=== PATIENT | male | born 1970 | race Caucasian/White ===

== ENCOUNTER → 2018-10-10 17:19 | Outpatient (CLI) | payer MEDICAID, SELFPAY ==
[2014-04-23 14:51] VITALS: BMI 35.4
--- NOTE | 2018-10-10 17:25 | RAD_ITS ---
STUDY: X-RAY - RIGHT FOOT CLINICAL: Male, 48 years old. Great toe pain and swelling TECHNIQUE: 2 view(s) of the foot. COMPARISON: None. FINDINGS: Normal talus and tarsal bones. Prominent calcaneal heel spurs. There is an acute minimally displaced osteochondral avulsion fracture of the proximal medial corner of the proximal phalanx of the great toe with soft tissue swelling. Normal visualized subtalar, talonavicular, calcaneocuboid, tarsal and tarsometatarsal articulations. Normal metatarsi. Normal metatarsophalangeal joint of the great toe. Normal tibial and fibular sesamoid bones. Normal interphalangeal joint of the great toe. Normal second through fifth metatarsophalangeal joints. Normal interphalangeal joints and phalanges of the lesser toes. RAD/Foot 2 Views IMPRESSION: Acute osteochondral avulsion fracture of the proximal medial corner of the proximal phalanx of the great toe with soft tissue swelling Prominent calcaneal spurs Electronically Signed: Home Newton MD at 10:13 EDT , Service support ,
== END ==
DX: M79.674 Pain in right toe(s) (principal)
CPT/HCPCS: 73620

== ENCOUNTER → 2018-11-06 15:11 | Outpatient (CLI) | payer MEDICAID, SELFPAY ==
[2014-04-23 14:51] VITALS: BMI 35.4
[2018-11-06 17:15] LABS: Uric Acid 7.4 mg/dL (3.5-7.2)
[2018-11-06 18:12] LABS: Source- Body Fluid SYNOVIAL
[2018-11-06 18:13] LABS: Body Fluid QC Type(s) BF4Q
[2018-11-07 14:06] LABS: Pathologist Review Reviewed
== END ==
PROVIDERS: Referring Provider Podiatrist; Visit Provider Podiatrist
DX: M10.9 Gout, unspecified (principal)
CPT/HCPCS: 36415; 84550; 87070; 87075; 87205; 89060

== ENCOUNTER → 2018-12-03 17:15 | Outpatient (CLI) | payer MEDICAID, SELFPAY ==
--- NOTE | 2018-12-03 17:45 | MRI_ITS ---
STUDY: MRI RIGHT FOREFOOT WITHOUT CONTRAST REASON FOR EXAM: Male, 48 years old. First digit fracture. TECHNIQUE: Standardized fat and water weighted pulse sequences were obtained in all 3 orthogonal planes. 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 There is synovial thickening and small joint effusion. Normal tibial and fibular sesamoids, with normal sesamoids-first metatarsal articulations. Normal interphalangeal joint of the hallux. There is marrow edema of the first proximal phalanx, series 5 images through . There is cystic focus at the base of the first proximal phalanx. There is fragmentation with fracturing on the medial aspect of the base of the first proximal phalanx, series 7 image 19/36. Normal medial and lateral heads of the flexor hallucis brevis tendons. Normal flexor and extensor hallucis longus tendons. Normal second through fifth metatarsophalangeal (MTP) joints. Normal interphalangeal joints of the second through fifth toes. Normal proximal, middle and distal phalanges of the second through fifth toes. Normal first through fourth intermetatarsal spaces. Normal flexor and extensor tendons of the second through fifth toes. Normal visualized metatarsi. Normal intrinsic muscles of the forefoot. There is no demonstrated soft tissue abnormality. MRI/Lower Ext/No Jt/w/o IMPRESSION: Marrow edema of the first proximal phalanx with fragmentation and fracturing at the base of the proximal phalanx. Osteomyelitis could be considered in the clinical setting of infection. Arthritic change at the first MTP joint with effusion and synovial thickening. Electronically Signed: Isidoro Zuniga MD at 18:46 EDT , Service support ,
== END ==
PROVIDERS: Referring Provider Podiatrist; Visit Provider Podiatrist
DX: M19.071 Primary osteoarthritis, right ankle and foot (principal); M10.9 Gout, unspecified; S92.401A Displaced unspecified fracture of right great toe, initial encounter for closed fracture; X58.XXXA Exposure to other specified factors, initial encounter; Y93.9 Activity, unspecified; Y92.9 Unspecified place or not applicable; Y99.9 Unspecified external cause status
CPT/HCPCS: 73718

== ENCOUNTER 2019-04-29 11:02 | Outpatient (RCR) | payer MEDICAID, SELFPAY ==
[2019-04-18 14:05] VITALS: BMI 35.4
== END 2019-05-02 23:59 ==
LOC: DC 11:02
PROVIDERS: Visit Provider Internal Medicine Endocrinology, Diabetes & Metabolism
DX: Z71.3 Dietary counseling and surveillance (principal); E10.65 Type 1 diabetes mellitus with hyperglycemia
CPT/HCPCS: 97802

== ENCOUNTER 2019-05-26 12:04 | Outpatient (RCR) | payer MEDICAID, SELFPAY ==
[2019-04-18 14:05] VITALS: BMI 35.4
== END 2019-05-26 23:59 | disposition home or self-care (01) ==
LOC: DC 12:04
PROVIDERS: Visit Provider Internal Medicine Endocrinology, Diabetes & Metabolism
DX: Z71.3 Dietary counseling and surveillance (principal); E10.65 Type 1 diabetes mellitus with hyperglycemia
CPT/HCPCS: 97803

== ENCOUNTER → 2019-07-22 09:53 | Outpatient (CLI) | payer MEDICAID, SELFPAY ==
[2019-04-18 14:05] VITALS: BMI 35.4
--- NOTE | 2019-07-22 09:58 | RAD_ITS ---
STUDY: X-RAY - RIGHT SHOULDER REASON FOR EXAM: Male, 49 years old. BILAT SHOULDER PAIN. NKI TECHNIQUE: 4 view(s) of the shoulder. COMPARISON: None. FINDINGS: Normal glenohumeral articulation. Normal acromioclavicular joint. Normal acromion. Normal humeral head and visualized proximal humerus. The soft tissue structures are unremarkable. Normal visualized pulmonary apex. RAD/Shoulder min 2 Views IMPRESSION: Normal x-ray examination of the shoulder. Electronically Signed: Edward Tapia, at 14:31 EDT , Service support ,
--- NOTE | 2019-07-22 09:58 | RAD_ITS ---
STUDY: X-RAY - LEFT SHOULDER REASON FOR EXAM: Male, 49 years old. BILAT SHOULDER PAIN. NKI TECHNIQUE: 4 view(s) of the shoulder. COMPARISON: None. FINDINGS: Normal glenohumeral articulation. Normal acromioclavicular joint. Normal acromion. Normal humeral head and visualized proximal humerus. The soft tissue structures are unremarkable. Normal visualized pulmonary apex. RAD/Shoulder min 2 Views IMPRESSION: Normal x-ray examination of the shoulder. Electronically Signed: Edward Tapia, at 14:31 EDT , Service support ,
== END ==
DX: M25.511 Pain in right shoulder (principal); M25.512 Pain in left shoulder
CPT/HCPCS: 73030

== ENCOUNTER 2019-09-05 10:00 | Outpatient (RCR) | payer MEDICAID, SELFPAY ==
[2019-04-18 14:05] VITALS: BMI 35.4
--- NOTE | 2019-08-01 13:23 | HP.PTEVAL_ITS ---
Patient's Visit Information LAUREN SALCIDO is a 49 year old M referred to Physical Therapy by NATASHA Lyman with a diagnosis of B shoulder pain.. Date of Evaluation: 08/01/19 Physical Therapist: Dayton Jordan, GILT, OCS, CSCS - Visit Plan Frequency: 3x /Week Duration: 4 Weeks Plan: 3x/week for 3-4 weeks for. A/PROM B scap and g-h, progress to strength if tolerated, shoulder mobs for pain and movement as tolerated. All B. May use es and MH if needed. - Subjective Got B shoulder pain. Not sure why. X rays were OK. They have hurt for two months insidiously. No problem more than 3 months ago. B anterior shoulder pain symmetrically. Pain is up to 7/10 at times. Worse with reaching out in front of him or into refrigerator for milk. Reaching to hair and behind him and lifting OH all hurt.Feels only slight pain 3/10 at rest. Has been constant for last couple weeks. They don't help anymore. Sleeping is not great but that is normal for him. Not employed, has foot problems and shoulder problems. Activity includes cleaning and dishes whcih make him worse. - Pain B ant shoulder pain. Pain Intensity (Out of 10): 3 Pain Intensity Range: 3, 7 - Objective B L >R. Tender to palpation in g-h anterior>posterior. Poor posture with elevated scap and forward head. Cervical AROM stiff but not painful at 50 ext, 60 rotations., scap AROM limited and sore. Hand and wrist aROM slow but full, elbow movement slow but WNL B. R shoulder aROM flexion:R 70 and L 75, abd same, IR to GT only due to pain, ext roatation to 12 B with pain. PROM elevation 90 B with firm endfeel and pain, ext rotation to 15 L and 12 R limited by pain with firm endfeel. IR at 30 abd has hard time getting hand to belly without pain. Strength 3 in available AROM flexion abd ext rot adn IR, 4- elbow flex adn ext. wrist 4- felxion adn extension. reflexes 2/3 bi and tri. Sensation WNL in UE to gross light touch. 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 Holds arms stiff adn very hard to relax. - drop arm test. Walks and transfers normal and I but hard time getting up from supine today. STIFFNESS AND BILATERAL MAKE WHEN COMBINED WITH NO OBVIOUS ONSET REASON MAKE ME WONDER ABOUT AUTOIMMUNE TYPE CONDTIONS VS ORTHO. - Goals Goal 1:: 0-140 aROM elevation without pain Goal Time Frame: 2-4 Weeks Goal 2:: Patient reach hair and tuck shirt withotu hesitation Goal Time Frame: 2-4 Weeks Goal 3:: Sleep without interruption from shoulders Goal Time Frame: 2-4 Weeks Goal 4:: Pt feel 75% improvement in shoulder condition. Goal Time Frame: 2-4 Weeks - Rehabilitation Potential Physical Therapy Diagnosis: B shoulder pain, ortho vs autoimmune? Rehabilitation Potential: Questionable - Anticipated Interventions Patient/Client Instruction: Educate patient on: Condition, Plan of Care For the Purpose of:: To decrease pain, To decrease swelling/inflammation, To increase ROM, To improve muscle performance and motor function, To increase tolerance to activity/condition/position, To improve ability of physical actions for home/community/work/leisure Therapeutic Exercise to Include: Strength training, Postural training, Flexibilty training, Neuromotor development, Passive ROM, Active ROM For the Purpose of:: To decrease pain, To increase ROM, To improve nutrient delivery to tissue, To increase tolerance to activity/condition/position, To improve ability of physical actions for home/community/work/leisure Manual Therapy Techniques to Include: Mobilization For the Purpose of:: To decrease pain, To increase ROM TENS: Yes Thermo therapy (hot pack): Yes For the Purpose of:: To decrease pain Thank you for the opportunity to evaluate your patient. For Medicare and Medicare HMO plans, please review the plan of care and approve it. It will need to be FAXED BACK to us at [phone] for Medicare purposes. For Medicare only, by signing this I certify the plan of care. Please let me know if there are questions or concerns regarding this plan of care. Physician Si gnature: Date:
--- NOTE | 2019-08-22 10:50 | HP.PTREVAL ---
Linda Mathis, [employer] STUDIES PROFESSOR-C, It has been my pleasure to treat LAUREN SALCIDO over the last 10 visits for B shoulder pain.. Please see the progress note below for an update on the physical therapy plan of care! Subjective: Still got pain intermittently especially on L 6/10 today but normally 3/10. R arm doing better and not near as bad 1-310. B shoulders keep him awake at times as he tosses adn turns. Popping at times. Back to doctor after this final f/u. Objective/Function: 20 L ext rotation adn 35 R external rotation. R 130 elevationa dn L 120 both causing pain. C/s aROM R rotation 40 adn L 30 and ext 28. Improving slowly still very stiff at end range of shoulder elevation adn limited cervical ROM. Strength at 4/5 UE with pain with resistance in ext adn IR and flexion/abd. Appropriate to cotninue with fair prognosis. Plan Plan: 3x/week x 2 weeks, pt to do gym ex at home I with band and wall rom. Please spend clinic time with shoulder gun massage and neck gun massage. and do manual PROM and mobs grade 4 to shoulders and neck to increase neck ROM. MH OK. Goals Goal 1:: 0-140 aROM elevation without pain Goal Time Frame: 2-4 Weeks Goal Progress: Progressing Goal 2:: Patient reach hair and tuck shirt withotu hesitation Goal Time Frame: 2-4 Weeks Goal Progress: Progressing Goal 3:: Sleep without interruption from shoulders Goal Time Frame: 2-4 Weeks Goal Progress: Not Progressing Goal 4:: Pt feel 75% improvement in shoulder condition. Goal Time Frame: 2-4 Weeks Goal Progress: Progressing Anticipated Interventions Patient/Client Instruction: Educate patient on: Condition, Plan of Care For the Purpose of:: To decrease pain, To decrease swelling/inflammation, To increase ROM, To improve muscle performance and motor function, To increase tolerance to activity/condition/position, To improve ability of physical actions for home/community/work/leisure Therapeutic Exercise to Include: Strength training, Postural training, Flexibilty training, Neuromotor development, Passive ROM, Active ROM For the Purpose of:: To decrease pain, To increase ROM, To improve nutrient delivery to tissue, To increase tolerance to activity/condition/position, To improve ability of physical actions for home/community/work/leisure Manual Therapy Techniques to Include: Mobilization For the Purpose of:: To decrease pain, To increase ROM TENS: Yes Thermo therapy (hot pack): Yes For the Purpose of:: To decrease pain Please do not hesitate to contact me at [phone] by phone or if you have questions or concerns regarding this new plan of care! Sincerely, Dayton Jordan, DPT, OCS, CSCS
--- NOTE | 2019-09-05 10:31 | HP.PTDCSUM ---
It has been my pleasure to treat LAUREN SALCIDO referred by Linda Mathis NP-C, with the diagnosis of B shoulder pain. for a total of 13 visit(s). Discharge Date: 09/05/19 Please see the following information for a summary of their discharge status. Subjective: Tension is off and doing better. Pain this week has been present when it pops 5/10 and then it feels better adn eases up. Now 3/10 B and is a pretty nromal day. Sleep is not interrupted B shoulders, never really slept that good. Activities normal. Been doing exercises at home adn can continue on his own. B ant shoulder pain. Pain Intensity (Out of 10): 4 L shoulder Pain Intensity (Out of 10): 3 R shoulder Pain Intensity (Out of 10): 3 % Improvement: 90 Objective/Function: 144 R aROM flexion and 142 L, external rotation B to 55 and IR to L5 with some slight stiffness. strength is 4/5 in B shoulder rotations and flex/abd without c/o pain. elbows are 4+/5 withotu pain. Goal 1:: 0-140 aROM elevation without pain Goal Progress: Goal Met Goal 2:: Patient reach hair and tuck shirt withotu hesitation Goal Progress: Goal Met Goal 3:: Sleep without interruption from shoulders Goal Progress: Goal Met Goal 4:: Pt feel 75% improvement in shoulder condition. Goal Progress: Goal Met Plan: d/c to [facility] If there are questions or concerns regarding this patient's physical therapy, please feel free to call me at [phone]. Thank you for the referral of this patient. Sincerely, Dayton Jordan, DPT, OCS, CSCS
== END 2019-09-05 19:00 | disposition home or self-care (01) ==
LOC: PT 10:00
PROVIDERS: Referring Provider Nurse Practitioner Family; Visit Provider Nurse Practitioner Family
DX: M25.512 Pain in left shoulder (principal)
CPT/HCPCS: 97110; 97140; 97162; 97164

== ENCOUNTER 2020-02-03 17:48 | Emergency (ER) | payer MEDICAID, SELFPAY ==
[2019-12-29 17:08] VITALS: BMI 35.4
[2020-02-03 17:48] VITALS: BP 165/90; PULSE 85; RESP 17; TEMP 36.3; O2SAT 99; BMI 39.6
--- NOTE | 2020-02-03 18:25 | ED.DCSUM_ITS ---
History of Present Illness Chief Complaint: Back Informant: Patient Onset: Days Maximum Severity: Mild Narrative: The patient presents complaining of right paralumbar back pain has had for 3 days, recently seen at a local urgent care clinic setting he had spasm in this area he reports the providers are could not help that he was directed to come to the emergency department. He did not injure his body in any way, he has chronic complaints of pain to the back pain to the pelvis he is referred to providers who is going to see for this process had no access to pain management he came into the ER as above. He is had no fever no cough no coronavirus exposure he is having normal bowel bladder habits normal ability to walk and ambulate, he has normal functional abilities to do all daily activities without difficulty he drove to the clinic and drove to the emergency department that difficulty He points to the right paralumbar back complaining with spasm here He has no history of kidney stones GI ailments, he indicates he has no com plaints no testicular pain or lesions normal bowel and bladder habits Past Medical History - Allergies and Home Meds Allergies/Adverse Reactions: Allergies No Known Allergies Allergy (Verified 02/03/20 17:48) Primary Care Physician: [facility],Maria De Jesus Gee [NON-STAFF] - Past Medical History: - - Back pain pelvic pain includes as above Surgical History: - - 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 Smoking Status: Former smoker - Family History Maternal Family History: Family History (Last Reviewed 01/02/20 @ 08:[address] Kirk Singh MD) Father Diabetes Mother Diabetes Family History: Reports: Diabetes, Heart Disease, Hypertension Paternal Family History: Family History (Last Reviewed 01/02/20 @ 08:[address] Kirk Singh MD) Father Diabetes Mother Diabetes Family History: Reports: No pertinent history Review of Systems General: Denies: Chills, Fever, Sweats Eyes: Denies: Visual changes - bilaterally, Diplopia ENT: Denies: Rhinorrhea, Sore throat Cardiovascular: Denies: Chest pain, Palpitations Respiratory: Denies: Dyspnea, Cough, Dyspnea on exertion Gastrointestinal: Denies: Abdominal pain, Nausea, Vomiting, Diarrhea, Melena, Hematochezia Genitourinary: Reports: Frequency. Denies: Dysuria, Hematuria Musculoskeletal: Reports: Back pain. Denies: Extremity Pain Skin: Denies: Rash, Wounds Neurological: Denies: Headache, Weakness, Numbness Physical Exam Vital Signs/Narrative: Vital Signs Temp Pulse Resp BP Pulse Ox 02/03/20 17:48 97.4 F L 85 17 165/90 H 99 General: Well nourished, Well developed, No Acute Distress Head: Normocephalic, Atraumatic Eyes: Perrl, EOMI ENT: Moist mucous membranes, No rhinorrhea Neck: Supple, Nontender Cardiovascular: Regular rate, Regular rhythm, No murmurs Respiratory: No distress, CTA bilaterally, Chest nontender Abdomen: Soft, Nontender, Nondistended, Normal bowel sounds Back: Normal Inspection, - - Very vague pain to the right paralumbar back he is in no distress he is standing without difficulty the midline back is nontender he can heel raise toe raise knee bend his knees walk around the room with no of abnormalities Extremities: Nontender, No edema Skin: Normal color, No rash Neurological: Alert, Oriented x3, Cranial nerves II-XII grossly intact, Normal Strength, Normal Sensation Psychological: Normal affect, Normal Mood Diagnostic/Tx/Re-eval - Medical Decision Making Given all of the above and his age and his complaints ED screening evaluation labs UA CT Patient's ED screen evaluation and labs UA CT of the abdomen noncontrast pelvis showed nothing acute see above's report discussed the above with him outpatient providers for the management of all the above Home stable Final impression right lumbar back pain ED Disposition - Plan for ED Patient: Diagnosis: Lumbar back pain Instructions: ED Spasm Back No Trauma, ED LUMBAR SPRAIN/STRAIN Prescriptions: Naproxen [Naprosyn] 500 mg PO BID PRN #20 tab Prescription Printed [facility] -
--- NOTE | 2020-02-03 18:28 | CT_ITS ---
STUDY: CT ABDOMEN AND PELVIS WITHOUT CONTRAST REASON FOR EXAM: Male, 49 years old. Back pain and swelling for 2 days. RADIATION DOSAGE (If Supplied By Facility): CTDIvol = ( 22.58 ) mGy, DLP = ( 1258.19 ) mGycm TECHNIQUE: Transaxial images were obtained from the dome of the diaphragm to the symphysis pubis without oral contrast, and without intravenous contrast. Sagittal and coronal images were reconstructed. Individualized dose optimization techniques were used for this CT. COMPARISON: CT of the abdomen and pelvis, 04/23/2014 FINDINGS: The visualized lung bases are unremarkable. The visualized portions of the heart are within normal limits. The liver is enlarged and diffusely fatty infiltrated. There is focal fatty sparing in the gallbladder fossa. Normal gallbladder and extrahepatic biliary system. Normal spleen. Normal pancreas. Normal bilateral adrenal glands. Normal right kidney. Normal left kidney. A tiny lower pole calcification seen on the previous study is no longer appreciated. Normal bilateral ureters. Normal visualized stomach. Normal small intestine. Feces throughout the colon without mass or obstruction. There are scattered diverticuli without inflammatory change. The appendix is visualized and appears normal. Normal abdominal aorta. Normal inferior vena cava. Normal retroperitoneum. Normal urinary bladder. Prostate and seminal vesicles. No pelvic lymphadenopathy. No free air or free fluid is seen within the peritoneal cavity. There is a small umbilical and small right inguinal hernia of omental fat. The abdominal wall is otherwise unremarkable. There are diffuse degenerative changes of the visualized lumbar spine. CT/Abdomen/Pelvis without Cont IMPRESSION: 1. Hepatomegaly with fatty interval radiation. This is unchanged from prior exam. 2. Absence of the tiny left renal calcification seen on the prior study. No other evidence of acute intra-abdominal process or other major interval change. Electronically Signed: Anthony Benjamin DO at 19:14 EST Tel [phone], Service support ,
[2020-02-03] MEDS: Ketorolac 15 MG/ML Vial IV (18:44)
[2020-02-03] MEDS: 0.9% Normal Saline 1,000 ML 250 ML IV (18:45)
[2020-02-03 19:18] LABS: Absolute Lymphocyte Count 1.82 X10^3/uL (0.83-4.51); Absolute Neutrophil Count 4.4 X10^3/uL (2.0-7.7); Basophil# 0.04 X10^3/uL; Basophil% 0.6 % (0-1); Eosinophil# 0.29 X10^3/uL; Hematocrit 41.8 % (40-54); Hemoglobin 13.5 g/dL (13.0-16.5); Lymphocyte # 1.82 X10^3/ul (4.0); Lymphocyte % 25.3 % (19-41); Mean Corp Hgb Conc 32.3 g/dL (32-36); Mean Corpuscular Hgb 26.4 pg (27.0-32.0); Mean Corpuscular Volume 81.8 fL (80-94); Mean Platelet Vol. 10.1 fl (6.2-12.0); Monocyte# 0.62 X10^3/uL; Monocyte% 8.6 % (0-10); NRBC Flagged by Analyzer 0 % (0-5); Neutrophil % 61.2 % (47-70); Platelet Count 201 K/mm3 (150-450); RBC Distribution Width CV 13.3 % (11.6-14.6); RBC Distribution Width SD 39.8 fl (35.1-43.9); Red Blood Count 5.11 M/mm3 (4.6-6.2); White Blood Count 7.2 K/mm3 (4.4-11.0)
[2020-02-03 19:24] LABS: Anion Gap 5 (5-15); BUN 13 mg/dL (7-18); BUN/Creat Ratio 10.8 RATIO (10-20); Calcium,Total 8.4 mg/dL (8.5-10.1); Chloride 106 mmol/L (98-107); EST Glomerular Filtration Rate 68 mL/min (>60); Est Glom Filt Rate - Afr Amer 83 mL/min (>60); Estimated Creatinine Clearance 75.28 ml/min; Glucose 269 mg/dL (74-106); Potassium 3.9 mmol/L (3.5-5.1); Sodium Level 140 mmol/L (136-145)
[2020-02-03 19:54] LABS: Bacteria 0 SEEN /hpf (None Seen); Mucous, Urine 0 SEEN /hpf (<or=2+)
[2020-02-03 20:07] LABS: Color, Urine Yellow (Yellow); Glucose, Dipstick 250 mg/dl (Normal); Ketone-Dipstick 5 mg/dl (Negative); Leukocyte Esterase-Dipstick 25 /ul (Negative); Nitrite-Dipstick Negative (Negative); Occult Blood-Urine 10 /ul (Negative); Protein-Dipstick 15 mg/dl (Negative); Specific Gravity, Urine 1.025 (1.002-1.030); Urine Bilirubin Dipstick Negative (Negative); Urine Clarity Sl. Cloudy (Clear); Urine Urobilinogen Normal (Normal)
[2020-02-03 20:25] LABS: Red Blood Cells-Urine 5-10 SEEN /hpf (0-5); Squamous Epithelial Cells - UA 0-5 SEEN /hpf (0-5); White Blood Cells 5-10 SEEN /hpf (0-5)
[2020-02-03 21:02] VITALS: PULSE 80; RESP 16; O2SAT 98
== END 2020-02-03 21:04 | disposition home or self-care (01) ==
PROVIDERS: Emergency Provider Emergency Medicine; PCP Nurse Practitioner Family
DX: M54.5 Low back pain (principal); Z87.891 Personal history of nicotine dependence
CPT/HCPCS: 74176; 80048; 81001; 85025; 96361; 96374; 99283; J7030; A4216

== ENCOUNTER → 2020-02-17 12:18 | Outpatient (CLI) | payer MEDICAID, SELFPAY ==
[2020-02-03 17:48] VITALS: BMI 39.6
--- NOTE | 2020-02-17 12:26 | US_ITS ---
STUDY: RENAL ULTRASOUND - COMPLETE REASON FOR EXAM: Male, 49 years old. RIGHT FLANK PAIN TECHNIQUE: Ultrasound evaluation of the kidneys was performed with real-time and static pitt-scale imaging. COMPARISON: CT scan from 02/03/2020 FINDINGS: RIGHT KIDNEY: Normal location of the right kidney, which is normal in size. The right kidney measures 13.1 x 6.8 x 4.8 cm. There is a normal cortex of the right kidney. The renal cortex measures 1.0 cm. There is a simple 1.0 cm cyst. There are no right renal calculi. There is no right hydronephrosis. DISTAL RIGHT URETER: There is non-visualization of the distal right ureter. There is no demonstrated right ureterovesical junction calculus. There is a visualized right ureteral jet. LEFT KIDNEY: Normal location of the left kidney, which is normal in size. The left kidney measures 11.8 x 5.2 x 6.1 cm. There is a normal cortex of the left kidney. The renal cortex measures 1.5 cm. There is no left renal mass or cyst. There are no left renal calculi. There is no left hydronephrosis. DISTAL LEFT URETER: There is non-visualization of the distal left ureter. There is no demonstrated left ureterovesical junction calculus. There is a visualized left ureteral jet. AORTA: There is no elongation or tortuosity of the abdominal aorta. I.V.C.: The IVC is patent. BLADDER: The bladder is sonographically normal US/Kidney and Bladder IMPRESSION: No suspicious sonographic findings, simple right renal cyst, no specific follow-up needed. Electronically Signed: Home Newton MD at 17:50 EST , Service support ,
== END ==
DX: M54.5 Low back pain (principal)
CPT/HCPCS: 76770

== ENCOUNTER → 2020-04-05 13:08 | Outpatient (CLI) | payer MEDICAID, SELFPAY ==
--- NOTE | 2020-04-05 15:30 | PFTCOMP ---
COMPLETE PULMONARY FUNCTION TEST INTERPRETATION Brief HPI: Patient is a 50 year old female, currently under the care of [facility], who presents to [facility] for complete pulmonary function tests secondary to diagnosis of dyspnea. Respiratory therapist reports good effort and reproducible results. Patient was complaining of chest pain on forced exhalation Interpretation: Forced expiration spirometry shows no large airways obstructive ventilatory defect with an FEV1 of 81% predicted. There is no significant bronchodilator response by strict ATS criteria. Spirograms are of good quality and plateau normally. The respiratory flow volume loop shows a normal pattern. Lung volumes by body plethysmography show a mildly decreased total lung capacity at 4.84 L, 83% predicted. All other lung volumes are within normal limits. Diffusion capacity by carbon monoxide is normal at 71% predicted. The airway resistance is normal. No previous pulmonary function tests were available for review. Impression: Mild restrictive ventilatory defect. Clinical suspicion for voluntary restriction secondary to chest pain, but clinical correlation would be advised.
== END ==
DX: R06.09 Other forms of dyspnea (principal)
CPT/HCPCS: 94060; 94726; 94729

== ENCOUNTER → 2020-04-07 | Outpatient (CLI) | payer MEDICAID, SELFPAY ==
[2020-04-07 13:17] LABS: Protein, Urine (Random) 36.8 mg/dL (<11.9); Protein:Creat Ratio 179 mg/g CRE (0-200)
== END | disposition home or self-care (01) ==
LOC: LABSPEC 11:36
PROVIDERS: Visit Provider Internal Medicine Nephrology
DX: N18.2 Chronic kidney disease, stage 2 (mild) (principal)
CPT/HCPCS: 82570; 84156

== ENCOUNTER → 2020-04-13 12:39 | Outpatient (CLI) | payer MEDICAID, SELFPAY ==
--- NOTE | 2020-04-13 12:46 | VDLE_ITS ---
Reason For Study: swelling RIGHT LEFT GSV is normal. GSV is normal. CFV is compressible, spontaneous, phasic, CFV is compressible, spontaneous, phasic, competent and demonstrates normal competent, and demonstrates normal augmentation. augmentation. FV is compressible, spontaneous, phasic, FV is compressible, spontaneous, phasic, competent and demonstrates normal competent and demonstrates normal augmentation. augmentation. POP V is compressible, spontaneous, phasic, POP V is compressible, spontaneous, phasic, competent and demonstrates normal competent and demonstrates normal augmentation. augmentation. T/P Trunk is compressible. T/P Trunk is compressible. PTV is compressible. PTV is compressible. RT PerV is compressible. LT PerV is compressible. Procedure This is a venous duplex using B-mode, color flow and spectral Doppler. Exam performed in department. The exam was diagnostic. A preliminary report was called and/or faxed to Dr. Grove. Interpretation Summary Deep veins of the lower extremities are bilaterally patent and compressible segmentally. There is no evidence of deep vein thrombosis on either side. Valvular competence appears intact within the proximal deep venous systems bilaterally. The great saphenous veins appear bilaterally patent and compressible segmentally. Ordering Physician: Mega Grove Performed By: Raudel Thomas RVT
[2020-04-13 13:34] LABS: Erythrocyte Sedimentation Rate 17 mm/hr (0-20)
[2020-04-13 13:36] LABS: Absolute Neutrophil Count 4.6 X10^3/uL (2.0-7.7); Basophil# 0.06 X10^3/uL; Basophil% 0.8 % (0-1); Eosinophil# 0.25 X10^3/uL; Eosinophils% 3.5 % (0-5); Hemoglobin 15.4 g/dL (13.0-16.5); Lymphocyte % 23.8 % (19-41); Mean Corp Hgb Conc 32.8 g/dL (32-36); Mean Corpuscular Hgb 26.3 pg (27.0-32.0); Mean Corpuscular Volume 80.2 fL (80-94); Mean Platelet Vol. 10.4 fl (6.2-12.0); Monocyte# 0.55 X10^3/uL; Monocyte% 7.7 % (0-10); NRBC Flagged by Analyzer 0 % (0-5); Neutrophil # 4.55 X10^3/uL (2.7-7.7); Neutrophil % 63.9 % (47-70); Platelet Count 208 K/mm3 (150-450); RBC Distribution Width CV 13.3 % (11.6-14.6); RBC Distribution Width SD 38.5 fl (35.1-43.9); Red Blood Count 5.86 M/mm3 (4.6-6.2); White Blood Count 7.1 K/mm3 (4.4-11.0)
[2020-04-13 13:58] LABS: Anion Gap 5 (5-15); BUN 14 mg/dL (7-18); BUN/Creat Ratio 12.3 RATIO (10-20); CRP 3.66 mg/L (0.0-3.0); Calcium,Total 8.3 mg/dL (8.5-10.1); Chloride 103 mmol/L (98-107); Creatinine, Serum 1.14 mg/dL (0.70-1.30); EST Glomerular Filtration Rate 73 mL/min (>60); Est Glom Filt Rate - Afr Amer 88 mL/min (>60); Glucose 171 mg/dL (74-106); Potassium 3.8 mmol/L (3.5-5.1); Rheumatoid Factor < 10.0 IU/mL (<15); Sodium Level 140 mmol/L (136-145); Uric Acid 6.2 mg/dL (3.5-7.2)
[2020-04-13 13:59] LABS: Vitamin D,25 Hydroxy 9.1 ng/mL
[2020-04-14 14:40] LABS: ANTINUCLEAR ANTIBODIES DIRECT Negative (Negative)
== END ==
PROVIDERS: Referring Provider Podiatrist; Visit Provider Podiatrist
DX: R60.0 Localized edema (principal)
CPT/HCPCS: 36415; 80048; 82306; 83036; 84550; 85025; 85652; 86038; 86140; 86431; 93970

== ENCOUNTER → 2020-06-08 11:07 | Outpatient (CLI) | payer MEDICAID, SELFPAY ==
[2020-05-03 13:15] VITALS: BMI 42.3
[2020-06-08 11:54] LABS: Hematocrit 40.6 % (40-54); Hemoglobin 13.5 g/dL (13.0-16.5); Mean Corp Hgb Conc 33.3 g/dL (32-36); Mean Corpuscular Hgb 27.3 pg (27.0-32.0); Mean Corpuscular Volume 82.2 fL (80-94); Mean Platelet Vol. 10.4 fl (6.2-12.0); Platelet Count 192 K/mm3 (150-450); RBC Distribution Width CV 13.6 % (11.6-14.6); RBC Distribution Width SD 40.2 fl (35.1-43.9); Red Blood Count 4.94 M/mm3 (4.6-6.2); White Blood Count 6.3 K/mm3 (4.4-11.0)
[2020-06-08 12:03] LABS: Protein, Urine (Random) 34.3 mg/dL (<11.9); Protein:Creat Ratio 197 mg/g CRE (0-200)
[2020-06-08 12:33] LABS: Vitamin D,25 Hydroxy 30.3 ng/mL
[2020-06-08 12:34] LABS: AST(SGOT) 21 U/L (15-37); Alanine Aminotransfer ALT/SGPT 35 U/L (16-61); Albumin, Serum 3.8 g/dL (3.2-5.0); BUN 13 mg/dL (7-18); BUN/Creat Ratio 13.2 RATIO (10-20); Calcium,Total 8.3 mg/dL (8.5-10.1); Chloride 103 mmol/L (98-107); Creatinine, Serum 0.98 mg/dL (0.70-1.30); EST Glomerular Filtration Rate 86 mL/min (>60); Est Glom Filt Rate - Afr Amer 104 mL/min (>60); Glucose 163 mg/dL (74-106); Phosphorus 2.7 mg/dL (2.5-4.9); Potassium 3.9 mmol/L (3.5-5.1); Sodium Level 138 mmol/L (136-145)
[2020-06-08 12:44] LABS: Hemoglobin A1c 8.5 % (3.8-5.6)
== END ==
PROVIDERS: Referring Provider Internal Medicine Nephrology; Visit Provider Internal Medicine Nephrology
DX: E10.21 Type 1 diabetes mellitus with diabetic nephropathy (principal); N18.2 Chronic kidney disease, stage 2 (mild); E55.9 Vitamin D deficiency, unspecified; M19.90 Unspecified osteoarthritis, unspecified site
CPT/HCPCS: 36415; 80069; 82306; 82570; 83036; 84156; 84450; 84460; 85027

== ENCOUNTER → 2020-09-06 11:47 | Outpatient (CLI) | payer MEDICAID, SELFPAY ==
[2020-09-06 11:19] VITALS: BMI 42.7
[2020-09-06 15:45] LABS: Cholesterol 183 mg/dL (200); High Density Lipoprotein 31 mg/dL; Triglycerides 286 mg/dL; Very Low Density Lipoprotein 57 mg/dL (5-40)
== END ==
PROVIDERS: Nurse Practitioner Family; Visit Provider Internal Medicine Endocrinology, Diabetes & Metabolism
DX: E78.2 Mixed hyperlipidemia (principal)
CPT/HCPCS: 36415; 80061

== ENCOUNTER 2020-09-22 13:45 | Outpatient (RCR) | payer MEDICAID, SELFPAY ==
[2020-09-01 13:15] VITALS: BP 167/90; PULSE 80; RESP 18; TEMP 36.6; BMI 42.7
[2020-09-01 15:20] LABS: Hemoglobin A1c 9.7 % (3.8-5.6)
--- NOTE | 2020-09-01 17:14 | PCM.WC.HP ---
History of Present Illness Date of Service: 09/01/20 Chief Complaint: Right great toe ulcer History of Wound: This 50-year-old male with uncontrolled diabetes and hypertension was seen for right great toe ulcer with an onset of 3 weeks ago. [facility]. He denies trauma. He does report loss of sensation consistent with neuropathy. He reports his last A1c level was between 8 and 10. He has been changing the dressing with Betadine. His claudication. He was provided with an offloading surgical shoe at the foot and ankle Center but presents today wearing a sneaker. He denies odor, redness, fever, chill, nausea, vomiting. He is with his son today. Progress of Wound: New evaluation, stable [facility] Medical History (Updated 09/01/20 @ 17:[address] Tracey Trinh DPM) Benign essential hypertension, age 0-18 Charcot foot due to diabetes mellitus Mixed hyperlipidemia Polyneuropathy due to type 1 diabetes mellitus Type 1 diabetes mellitus Home Medications aspirin 81 mg PO DAILY@0800 #30 tab.chew 04/25/14 [Rx Last Taken Unknown] famotidine 20 mg PO BID #60 tab 04/25/14 [Rx Last Taken Unknown] lisinopril 10 mg tablet 10 mg PO DAILY #1 tab 04/18/19 [Rx Last Taken Unknown] rosuvastatin 10 mg tablet 10 mg PO DAILY #1 tab 04/18/19 [Rx Last Taken Unknown] flash glucose scanning reader #1 ea 11/27/19 [Rx Last Taken Unknown] flash glucose sensor #2 ea 11/27/19 [Rx Last Taken Unknown] pen needle, diabetic 32 gauge x 32 #100 ea 12/29/19 [Rx Last Taken Unknown] blood sugar diagnostic #100 ea 01/19/20 [Rx Last Taken Unknown] naproxen 500 mg PO BID PRN #20 tab 02/03/20 [Rx Last Taken Unknown] insulin regular hum U-500 conc 60 unit SC TID #12 ml 05/03/20 [Rx Last Taken Unknown] lancets 33 gauge #100 ea 05/03/20 [Rx Last Taken Unknown] Allergy/AdvReac Type Severity Reaction Status Date / Time No Known Allergies Allergy Verified 05/03/20 13:16 Family History Father Diabetes Mother Diabetes Social History (Updated 05/03/20 @ 13:[address] Kirk Singh MD) alcohol intake: current alcohol intake frequency: holidays/special occasions only Vital Signs Vital Signs Vital Signs: 09/01/20 13:15 Temperature 97.8 F Temperature Source Temporal Pulse Rate 80 Respiratory Rate 18 Blood Pressure 167/90 H Blood Pressure Mean 115 Blood Pressure Source Monitor Blood Pressure Position Sitting Blood Pressure Location Left Arm Weight Weight: 120.202 kg Body Mass Index (BMI) 42.7 Physical Exam Const alert and oriented x3 General Appearance: cooperative HEENT normocephalic Extremity Extremity Narrative: No calf tenderness Diminished pulses 2/4 bilateral DP and 1/4 bilateral PT Muscle wasting noted Decreased limited first metatarsophalangeal joint range of motion General Extremity: edema and no tenderness to palpation of joints or extremities; Negative for cyanosis Skin Skin Narrative: no purulence, no streaking, no odor, no infection. There is hyperpigmentation to bilateral lower extremities. His skin is atrophic with limited hair to the foot and leg. The ulcer base is pale and granular with peripheral callus. There is no necrosis, maceration, or deep tissue exposure General Skin Exam: Negative for erythema Neuro Neuro Narrative: lack of normal epicritic sensation via light touch is consistent with neuropathy status Psych cooperative and affect normal Debridement Note Debridement Note Post-Debridement Measurements and Additional Note: Post-Debridement Measurements/Treatment - Nurse 1 - General Ulcer Assessment Start: 09/01/20 13:15 Freq: Status: Active Protocol: WC.LOWEXT Activity Type Activity Date Activity User E-Sign Co-Sign Detail Recorded Client Recorded Date Recorded By Document 09/01/20 13:15 [place] Desktop 09/01/20 13:25 [place] 09/01/20 13:15 - Today's Visit Information Type of service Initial Visit Arrival Mode Ambulatory Transfer Assistance None Patient Identification Verified (Name & Yes ) Patient Requires Transmission-Based No Precautions Safety Precautions NA Finger Stick Blood Sugar(mg/dl) (if 145 indicated): Blood Sugar Stated by Patient Height and Weight Height 5 ft 6 in Weight 120.202 kg Weight in Pounds 265.0 lbs Weight Measurement Method Standing Scale Body Mass Index (BMI) 42.7 BMI Classification Obese BSA - Leslye 2.25 Vital Signs Temperature (97.8 F-99.1 F) 97.8 F Temperature Source Temporal Pulse Rate (60-100) 80 Pulse Location Monitor Respiratory Rate (12-18) 18 Respiratory rate source Observation Blood Pressure (90/60-120/80) 167/90 H Blood Pressure Mean 115 Source Monitor Position Sitting Blood Pressure Location Left Arm History Since Last Visit- (Skip if this is Patient's initial visit) Have you changed medications since your No last visit? Any new allergies or adverse reactions No Had a fall/change in ADL's that may No increase risk of falls Signs or symptoms of abuse and/or No neglect since last visit Have you been in the hospital since your No last visit? Has dressing in place as prescribed Yes Has compression in place as prescribed N/A Has offloadiing in place as prescribed N/A Experienced any changes in pain level or No management Left Footwear Regular Shoe Right Footwear Regular Shoe Pain Scale: 0-10 Numeric Is Patient Pain Free? Yes WC - Nurse 1 - General Ulcer Measurement Start: 09/01/20 13:15 Freq: Status: Active Protocol: Activity Type Activity Date Activity User E-Sign Co-Sign Detail Recorded Client Recorded Date Recorded By Document 09/01/20 13:15 MS Desktop 09/01/20 13:25 MS 09/01/20 13:15 Wound Center Nurse 1 #1 RIGHT HALLUX PLANTAR -Combined with other wound No -Current Size (cm) - Length 1.2 -Current Size (cm) - Width 2 -Current Size (cm) - Depth 0.2 -Total Square Cm 2.4 -Exudate Amt Small -Exudate Type Serosanguineous -Wound Margin Distinct, Outline Attached -Granulation Amt Small (1-33%) -Slough/Fibrin Yes -Necrosis Amt Medium (34-66%) -Necrotic Tissue Type Adherent Slough -Texture (Quynh-wound Skin Appearance) No Abnormality -Moisture (Quynh-wound Skin Appearance) No Abnormality -Color (Quynh-wound Skin Appearance) No Abnormality -Ulcer Cleansing Wound Cleanser -Foul Odor after Cleansing No -Anesthetic Used 4% Lidocaine Solution Right Calf (cm) 44.5 Right Ankle (cm) 27 Left Calf (cm) 44.5 Left Ankle (cm) 25.7 WC - Nurse 2 - General Ulcer CM Notes Start: 09/01/20 13:15 Freq: Status: Active Protocol: Activity Type Activity Date Activity User E-Sign Co-Sign Detail Recorded Client Recorded Date Recorded By Document 09/01/20 13:45 [id number] 09/01/20 13:51 09/01/20 13:45 Wound Center Nurse 2 #1 RIGHT HALLUX PLANTAR -Time 13:48 -Correct Patient Yes -Correct Side, Site, Position Yes -Correct Procedure Yes -Procedure Performed Yes -Type of Procedure Debridement -Clinical Debridement Subcutaneous -Tissue Removed Subcutaneous -Post Debridement (cm) - Length 1 -Post Debridement (cm) - Width 2 -Post Debridement (cm) - Depth 0.2 -Total Square (Post) (cm) 2 -Area of Debridement (cm) - Length 1 -Area of Debridement (cm) - Width 2 -Total Square (Area) (cm) 2 -Tunneling No -Undermining/Tunneling No -Circular Undermining No -Wound/Ulcer Outcome Not Healed -Ulcer Cleansing Rinsed/ Irrigated with Saline -Foul Odor after Cleansing No -Bioengineered Tissue No -Bleeding Controlled with Pressure -Offloading Yes -Type of Offloading Surgical Shoe -Treatment Response Procedure Tolerated Well -Debridement - Subq, 1st 20sq cm Yes Pain Scale: 0-10 Numeric Is Patient Pain Free? Yes - Nurse 3 - General Ulcer D/C NN Start: 09/01/20 13:15 Freq: Status: Active Protocol: Activity Type Activity Date Activity User E-Sign Co-Sign Detail Recorded Client Recorded Date Recorded By Document 09/01/20 14:14 Desktop 09/01/20 14:14 09/01/20 14:14 Wound Care Nurse 3 #1 RIGHT HALLUX PLANTAR -Ulcer Cleansing Wound Cleanser -Primary Dressing Applied Aquacel AG 4x4 -Primary Dressing Covered/Secured with Dry Gauze,Dry Gauze & Roll Gauze,Secured with Tape -Aquacel AG 4x4 1 Treatment Response Procedure Tolerated Well Pain Scale: 0-10 Numeric Is Patient Pain Free? Yes - Visit Discharge Discharge Condition Stable Ambulatory Status Ambulatory Transportation Private Auto Medication Reconcilliation completed & No provided to patient/care provider Clinical Summary of Care Provided Yes Wound debrided: plantar right hallux Wound Grade/Stage: 1 Type of Debridement: Excisional debridement Anesthesia Used: 4% Lidocaine Solution Depth: in the subcutaneous layer Percentage of wound debrided: 100 Instrument Used: #15 blade Tissue Removed: fibrous, devitalized subcutaneous, biofilm, slough Severity: Fat Layer Exposed Amount of bleeding with debridement: Mild Bleeding Controlled with: Pressure Patient tolerated procedure: Patient tolerated procedure well Lab / Micro Data Labs: Laboratory Results - last 24 hr 09/01/20 14:25 Hemoglobin A1c 9.7 H Assessment/Plan Assessment/Plan (1) Type 2 diabetes mellitus with diabetic polyneuropathy: CODE(S): E11.42 - Type 2 diabetes mellitus with diabetic polyneuropathy (2) Chronic ulcer of great toe of right foot with fat layer exposed: CODE(S): L97.512 - Non-pressure chronic ulcer of other part of right foot with fat layer exposed (3) Type 2 diabetes mellitus with right diabetic foot ulcer: CODE(S): E11.621 - Type 2 diabetes mellitus with foot ulcer; L97.519 - Non-pressure chronic ulcer of other part of right foot with unspecified severity (4) Malnutrition: CODE(S): E46 - Unspecified protein-calorie malnutrition (5) Other specified peripheral vascular diseases: CODE(S): I73.89 - Other specified peripheral vascular diseases (6) Venous insufficiency (chronic) (peripheral): CODE(S): I87.2 - Venous insufficiency (chronic) (peripheral) (7) Localized edema: CODE(S): R60.0 - Localized edema PLAN: I reviewed and discussed his case today. Debridement was performed today as noted in the clinical panel to all of the ulcer sites. The following work up and care recommendations were made: Dressing: Aquacel Ag Wash: Soap and water Tissue growth optimization: His ulcer is chronic and has been open for over 3 weeks. I recommend application of advanced wound healing product, epi fix, the indication, benefits, anticipated application was reviewed. This is donated placental tissue with over 300 growth factors. Prior authorization will be initiated. This is medically necessary for limb salvage. Offload: To resume offloading surgical shoe use with offloading Plastizote liners. He will bring this to clinic next week for potential additional modifications Vascular: I recommend noninvasive arterial studies including RYAN, segmental pressures and systolic toe pressures. Edema: It is okay to wear Tubigrip and elevate. Venous Doppler with reflux evaluation was also ordered. He has hyperpigmentation and I suspect venous insufficiency may be contributing to this. Infection: He was reassured no local signs infection are noted. To monitor for development. Pain: Not present due to neuropathy Host factors: His hemoglobin A1c is elevated and this may delay healing. He is following up with Dr. Singh, plan checker next week in which she will further discuss additional medication, diet, and activity modifications to optimize healing and diabetic control. Nutrition: I recommend improvement in nutrition. He was seen by [facility] mission support specialist in the past and reports that he was not able to pursue the recommendations. He also realizes his nutrition plan is not allowing appropriate glucose management. I recommend implementing at least some of the recommendations. Labs: CBC, CMP, updated hemoglobin A1c was ordered Imaging: He obtained a foot x-ray at the foot and ankle Center and I will review at that location I answered all the patient's questions. To return to the wound healing center in 1 week or call sooner if the patient has any questions or concerns. 20 minutes was spent on this encounter. This included face to face and non face to face care including preparing for the visit, reviewing the history, performing the exam, counseling and providing education to the patient, family, or caregiver, ordering medications/test/ procedures if indicated as documented, communicating with other healthcare providers, documenting information in the medical record, interpreting / sharing this information when indicated as documented, and care coordination.
[2020-09-08 13:35] VITALS: BP 145/83; TEMP 38.3; BMI 42.7
--- NOTE | 2020-09-08 16:20 | PCM.WC.PN ---
History of Present Illness Date of Service: 09/08/20 Chief Complaint: Right great toe ulcer History of Wound: This 50-year-old male with uncontrolled diabetes and hypertension was seen for right great toe ulcer. He does report loss of sensation consistent with neuropathy. He has been changing the dressing as advised. His claudication. He was provided with an offloading surgical shoe. He denies odor, redness, fever, chill, nausea, vomiting. He is with his son today. He did not complete his recommended diagnostic data. We reviewed his hemoglobin A1c results today and he reports he has seen a renal social worker a couple times and does not know if they can provide additional help for him. Progress of Wound: Stable Objective Data Objective Data Vital Signs: Vital Signs Temp Pulse Resp BP 101 F H 80 18 145/83 H 09/08/20 13:35 09/01/20 13:15 09/01/20 13:15 09/08/20 13:35 Weight: 120.202 kg Body Mass Index (BMI) 42.7 Physical Exam Const alert and oriented x3 General Appearance: cooperative HEENT normocephalic Extremity Extremity Narrative: No calf tenderness Diminished pulses 2/4 bilateral DP and 1/4 bilateral PT Muscle wasting noted Decreased limited first metatarsophalangeal joint range of motion General Extremity: edema and no tenderness to palpation of joints or extremities; Negative for cyanosis Skin Skin Narrative: no purulence, no streaking, no odor, no infection. There is hyperpigmentation to bilateral lower extremities. His skin is atrophic with limited hair to the foot and leg. The ulcer base is pale and granular with peripheral callus. There is no necrosis, maceration, or deep tissue exposure General Skin Exam: Negative for erythema Neuro Neuro Narrative: lack of normal epicritic sensation via light touch is consistent with neuropathy status Psych cooperative and affect normal Debridement Note Debridement Note Post-Debridement Measurements and Additional Note: Post-Debridement Measurements/Treatment WC - Nurse 1 - General Ulcer Assessment Start: 09/01/20 13:15 Freq: Status: Active Protocol: KIMMY Activity Type Activity Date Activity User E-Sign Co-Sign Detail Recorded Client Recorded Date Recorded By Document 09/01/20 13:15 MS Desktop 09/01/20 13:25 MS Document 09/08/20 13:35 KR Desktop 09/08/20 13:41 KR 09/01/20 09/08/20 13:15 13:35 - Today's Visit Information Type of service Initial Visit Follow-up Visit (Physician/GIN CLERK ) Arrival Mode Ambulatory Ambulatory,Cane Transfer Assistance None Patient Identification Verified (Name & Yes Yes ) Patient Requires Transmission-Based No Precautions Safety Precautions NA Finger Stick Blood Sugar(mg/dl) (if 145 indicated): Blood Sugar Stated by Patient Height and Weight Height 5 ft 6 in Weight 120.202 kg Weight in Pounds 265.0 lbs Weight Measurement Method Standing Scale Body Mass Index (BMI) 42.7 42.7 BMI Classification Obese Obese BSA - Leslye 2.25 Vital Signs Temperature (97.8 F-99.1 F) 97.8 F 101 F H Temperature Source Temporal Temporal Pulse Rate (60-100) 80 Pulse Location Monitor Monitor Respiratory Rate (12-18) 18 Respiratory rate source Observation Blood Pressure (90/60-120/80) 167/90 H 145/83 H Blood Pressure Mean (mm Hg) 115 103 Source Monitor Monitor Position Sitting Semi-Fowlers Blood Pressure Location Left Arm Left Arm History Since Last Visit- (Skip if this is Patient's initial visit) Have you changed medications since your No No last visit? Any new allergies or adverse reactions No No Had a fall/change in ADL's that may No No increase risk of falls Signs or symptoms of abuse and/or No No neglect since last visit Have you been in the hospital since your No No last visit? Has dressing in place as prescribed Yes Yes Has compression in place as prescribed N/A N/A Has offloadiing in place as prescribed N/A Yes Experienced any changes in pain level or No No management Left Footwear Regular Shoe Right Footwear Regular Shoe Pain Scale: 0-10 Numeric Is Patient Pain Free? Yes Yes - Nurse 1 - General Ulcer Measurement Start: 09/01/20 13:15 Freq: Status: Active Protocol: Activity Type Activity Date Activity User E-Sign Co-Sign Detail Recorded Client Recorded Date Recorded By Document 09/01/20 13:15 MS Desktop 09/01/20 13:25 MS Document 09/08/20 13:35 KR Desktop 09/08/20 13:41 KR 09/01/20 09/08/20 13:15 13:35 Wound Center Nurse 1 #1 RIGHT HALLUX PLANTAR -Combined with other wound No -Current Size (cm) - Length 1.2 0.9 -Current Size (cm) - Width 2 1.5 -Current Size (cm) - Depth 0.2 0.5 -Total Square Cm 2.4 1.35 -Exudate Amt Small Small -Exudate Type Serosanguineous Serosanguineous -Wound Margin Distinct, Distinct, Outline Outline Attached Attached -Granulation Amt Small (1-33%) Small (1-33%) -Granulation Quality Red -Slough/Fibrin Yes -Necrosis Amt Medium (34-66%) Small (1-33%) -Necrotic Tissue Type Adherent Slough Adherent Slough -Texture (Quynh-wound Skin Appearance) No Abnormality Assessed, Scarring -Moisture (Quynh-wound Skin Appearance) No Abnormality No Abnormality, Assessed -Color (Quynh-wound Skin Appearance) No Abnormality No Abnormality, Assessed -Temperature (Quynh-wound Skin No Abnormality Appearance) (Pt Warm) -Tenderness on Palpation (Quynh-wound No Skin Appearance) -Ulcer Cleansing Wound Cleanser Rinsed/ Irrigated with Saline -Foul Odor after Cleansing No No -Anesthetic Used 4% Lidocaine 5% Lidocaine Solution Gel Right Calf (cm) 44.5 Right Ankle (cm) 27 Left Calf (cm) 44.5 Left Ankle (cm) 25.7 WC - Nurse 2 - General Ulcer CM Notes Start: 09/01/20 13:15 Freq: Status: Active Protocol: Activity Type Activity Date Activity User E-Sign Co-Sign Detail Recorded Client Recorded Date Recorded By Document 09/01/20 13:45 [id number] 09/01/20 13:51 Document 09/08/20 14:04 Laptop 09/08/20 14:10 09/01/20 09/08/20 13:45 14:04 Wound Center Nurse 2 #1 RIGHT HALLUX PLANTAR -Time 13:48 14:04 -Correct Patient Yes Yes -Correct Side, Site, Position Yes Yes -Correct Procedure Yes Yes -Procedure Performed Yes Yes -Type of Procedure Debridement Debridement -Clinical Debridement Subcutaneous Subcutaneous -Tissue Removed Subcutaneous Subcutaneous -Post Debridement (cm) - Length 1 1.0 -Post Debridement (cm) - Width 2 1.5 -Post Debridement (cm) - Depth 0.2 0.2 -Total Square (Post) (cm) 2 1.50 -Area of Debridement (cm) - Length 1 1.0 -Area of Debridement (cm) - Width 2 1.5 -Total Square (Area) (cm) 2 1.50 -Tunneling No No -Undermining/Tunneling No No -Circular Undermining No No -Wound/Ulcer Outcome Not Healed Not Healed -Ulcer Cleansing Rinsed/ Rinsed/ Irrigated with Irrigated with Saline Saline -Foul Odor after Cleansing No No -Bioengineered Tissue No Yes -Type of Bioengineered Tissue Epifix 18mm Disc -Expiration Date 05/31/25 -Product Lot Number [id number] -Percent Used 100 -Lot number of Saline Used [id number] -Bleeding Controlled with Pressure Pressure -Offloading Yes Yes -Type of Offloading Surgical Shoe Camwalker -Treatment Response Procedure Procedure Tolerated Well Tolerated Well -Debridement - Subq, 1st 20sq cm Yes No -Apply Skin Sub - 1st 25 sq cm - Feet 1 -Epifix 18mm Disc 3 Pain Scale: 0-10 Numeric Is Patient Pain Free? Yes Yes - Nurse 3 - General Ulcer D/C NN Start: 09/01/20 13:15 Freq: Status: Active Protocol: Activity Type Activity Date Activity User E-Sign Co-Sign Detail Recorded Client Recorded Date Recorded By Document 09/01/20 14:14 Desktop 09/01/20 14:14 09/01/20 14:14 Wound Care Nurse 3 #1 RIGHT HALLUX PLANTAR -Ulcer Cleansing Wound Cleanser -Primary Dressing Applied Aquacel AG 4x4 -Primary Dressing Covered/Secured with Dry Gauze,Dry Gauze & Roll Gauze,Secured with Tape -Aquacel AG 4x4 1 Treatment Response Procedure Tolerated Well Pain Scale: 0-10 Numeric Is Patient Pain Free? Yes - Visit Discharge Discharge Condition Stable Ambulatory Status Ambulatory Transportation Private Auto Medication Reconcilliation completed & No provided to patient/care provider Clinical Summary of Care Provided Yes Wound debrided: plantar medial right hallux Wound Grade/Stage: 1 Type of Debridement: Excisional debridement Anesthesia Used: 4% Lidocaine Solution Depth: in the subcutaneous layer Percentage of wound debrided: 100 Instrument Used: #15 blade Tissue Removed: fibrous, devitalized subcutaneous, biofilm, slough Severity: Fat Layer Exposed Amount of bleeding with debridement: Mild Bleeding Controlled with: Pressure Patient tolerated procedure: Patient tolerated procedure well Assessment/Plan Assessment/Plan (1) Type 2 diabetes mellitus with diabetic polyneuropathy: CODE(S): E11.42 - Type 2 diabetes mellitus with diabetic polyneuropathy QUALIFIERS: Diabetes mellitus mcc insulin use: with mcc use Qualified Code(s): E11.42 - Type 2 diabetes mellitus with diabetic polyneuropathy; Z79.4 - terminal operations manager (current) use of insulin (2) Chronic ulcer of great toe of right foot with fat layer exposed: CODE(S): L97.512 - Non-pressure chronic ulcer of other part of right foot with fat layer exposed (3) Type 2 diabetes mellitus with right diabetic foot ulcer: CODE(S): E11.621 - Type 2 diabetes mellitus with foot ulcer; L97.519 - Non-pressure chronic ulcer of other part of right foot with unspecified severity (4) Malnutrition: CODE(S): E46 - Unspecified protein-calorie malnutrition (5) Other specified peripheral vascular diseases: CODE(S): I73.89 - Other specified peripheral vascular diseases (6) Venous insufficiency (chronic) (peripheral): CODE(S): I87.2 - Venous insufficiency (chronic) (peripheral) (7) Localized edema: CODE(S): R60.0 - Localized edema PLAN: I reviewed and discussed his case today. Debridement was performed today as noted in the clinical panel to all of the ulcer sites. The following work up and care recommendations were made: Dressing: Aquacel Ag Wash: Soap and water Tissue growth optimization: His ulcer is chronic and has been open for over 4 weeks. I recommend application of advanced wound healing product, epi fix, the indication, benefits, anticipated application was reviewed. This is donated placental tissue with over 300 growth factors. This is medically necessary for limb salvage. Prior authorization was obtained and verbal consent was obtained. This was applied according to standard protocol and was further secured in place with a wound veil and Steri-Strips. He tolerated this well. 100% of the product was utilized. He was advised to keep this clean, dry, and intact until next week. Offload: To continue offloading surgical shoe use with offloading Plastizote liners. Vascular: I recommend noninvasive arterial studies including RYAN, segmental pressures and systolic toe pressures. Edema: It is okay to wear Tubigrip and elevate. Venous Doppler with reflux evaluation was also ordered. He has hyperpigmentation and I suspect venous insufficiency may be contributing to this. Infection: He was reassured no local signs infection are noted. To monitor for development. Pain: Not present due to neuropathy Host factors: His hemoglobin A1c is elevated and this may delay healing. His updated A1c was 9.7%. He is following up with Dr. Singh, drum operator next week in which she will further discuss additional medication, diet, and activity modifications to optimize healing and diabetic control. Nutrition: I recommend improvement in nutrition. He was seen by [facility] renal social worker in the past and reports that he was not able to pursue the recommendations. He also realizes his nutrition plan is not allowing appropriate glucose management. I recommend implementing at least some of the recommendations. He refuses additional referral today. Labs: CBC, CMP. He did not proceed forward with his diagnostic data testing as advised including the labs and vascular studies. He will work on completing these. Imaging: He obtained a foot x-ray at the [facility] and this was reviewed without osseous destruction, soft tissue emphysema, acute injuries. I answered all the patient's questions. To return to the wound healing center in 1 week or call sooner if the patient has any questions or concerns. Note: [employer] speech recognition occupational health physiotherapist software was used to create portions of this document. Sound-alike and misspelled words, as well as other occupational health physiotherapist errors may be contained in the documentation. The medical decision making level is low. There is noted low risk of morbidity after considering this treatment plan and diagnostic data. The problems addressed require a low medical decision making level which includes two or more minor problems, a stable chronic illness, or an acute uncomplicated illness or injury.
--- NOTE | 2020-09-14 11:00 | ART_ITS ---
Reason For Study: PVD Procedure A bilateral lower extremity continuous wave Doppler with analog waveform analysis,segmental pressures,and ankle brachial indexes without exercise. Left Segmental Pressures Left brachial= 154mmHg. Left posterior tibial artery = 194mmHg. Left dorsalis pedis artery = 182mmHg. Left digit = 149 mmHg. The left dorsalis pedis waveforms are triphasic. The left posterior tibial artery waveforms are triphasic. Right Segmental Pressures Right brachial= 161mmHg. Right posterior tibial artery = 211mmHg. Right dorsalis pedis artery = 187mmHg. The right dorsalis pedis waveforms are triphasic. The right posterior tibial artery waveforms are triphasic. Indices The right ankle brachial index by the dorsalis pedis is 1.16. The right ankle brachial index by the posterior tibial artery is 1.31. The left ankle brachial index by the dorsalis pedis is 1.13. The left ankle brachial index by the posterior tibial artery is 1.20. The left digital-brachial index is 0.93. VL/Lower Ext Art Exam w/o Exercis Interpretation Summary Triphasic Doppler waveforms are noted at ankle level bilaterally. Pulse-volume recordings appear satisfactory bilaterally. Resting ankle-brachial indices are normal bilaterally . The right digital- brachial index was not determined due to the presence of bandages. The left dig ital-brachial index is normal. There is no evidence of significant arterial occlusive disease in the lower ext remities bilaterally. Arterial flow at digital level on the right was not assessed due to the presenc e of bandages. Ordering Physician: Tracey Trinh Referring Physician: Maria De Jesus [facility] Performed By: Shalonda Carrera RVT and Student
[2020-09-15 13:38] VITALS: BP 174/96; PULSE 89; RESP 16; TEMP 36.4; BMI 42.7
--- NOTE | 2020-09-15 16:28 | PN.PCM_ITS ---
History of Present Illness Date of Service: 09/15/20 Chief Complaint: Right great toe ulcer History of Wound: This 50-year-old male with uncontrolled diabetes and hypertension was seen for right great toe ulcer. He does report loss of sensation consistent with neuropathy. He has been changing the dressing as advised. He denies claudication. He was provided with an offloading surgical shoe and wears it at times. He denies odor, redness, fever, chill, nausea, vomiting. He did not complete his recommended diagnostic data. He has a new ulcer to the front of his ankle and relates he has been extremely active with his offloading shoe device and he thinks this is rubbing. Progress of Wound: Stable Objective Data Objective Data Vital Signs: Vital Signs Temp Pulse Resp BP 97.6 F L 89 16 174/96 H 09/15/20 13:38 09/15/20 13:38 09/15/20 13:38 09/15/20 13:38 Oxygen Delivery Method Room Air Weight: 120.202 kg Body Mass Index (BMI) 42.7 Radiography Diagnostic Testing: Radiology Impression Extremity Arterial Study 09/14/20 11:00 Interpretation Summary Triphasic Doppler waveforms are noted at ankle level bilaterally. Pulse-volume recordings appear satisfactory bilaterally. Resting ankle-brachial indices are normal bilaterally. The right digital- brachial index was not determined due to the presence of bandages. The left digital-brachial index is normal. There is no evidence of significant arterial occlusive disease in the lower extremities bilaterally. Arterial flow at digital level on the right was not assessed due to the presence of bandages. Ordering Physician: Tracey Trinh [facility]erring Physician[facility] Performed By: Shalonda Carrera RVT and Student Physical Exam Const alert and oriented x3 General Appearance: cooperative HEENT normocephalic Extremity Extremity Narrative: No calf tenderness Diminished pulses 2/4 bilateral DP and 1/4 bilateral PT Muscle wasting noted Decreased limited first metatarsophalangeal joint range of motion General Extremity: edema and no tenderness to palpation of joints or extremities; Negative for cyanosis Skin Skin Narrative: no purulence, no streaking, no odor, no infection. There is hyperpigmentation to bilateral lower extremities. His skin is atrophic with limited hair to the foot and leg. The ulcer base is pale and granular with peripheral callus. There is no necrosis, maceration, or deep tissue exposure. There is a new skin discontinuity to his anterior ankle/lower leg without odor or redness. This is fibrous and granular base no exposed tendon or necrosis or eschar General Skin Exam: Negative for erythema Neuro Neuro Narrative: lack of normal epicritic sensation via light touch is consistent with neuropathy status Psych cooperative and affect normal Debridement Note Debridement Note Post-Debridement Measurements and Additional Note: Post-Debridement Measurements/Treatment - Nurse 1 - General Ulcer Assessment Start: 09/01/20 13:15 Freq: Status: Active Protocol: KIMMY Activity Type Activity Date Activity User E-Sign Co-Sign Detail Recorded Client Recorded Date Recorded By Document 09/01/20 13:15 MS Desktop 09/01/20 13:25 MS Document 09/08/20 13:35 KR Desktop 09/08/20 13:41 KR Document 09/15/20 13:38 [facility] [id number] 09/15/20 13:43 [facility] 09/01/20 09/08/20 09/15/20 13:15 13:35 13:38 - Today's Visit Information Type of service Initial Visit Follow-up Visit Follow-up Visit (Physician/CLINICAL PSYCHOLOGY PROFESSOR (Physician/CLINICAL PSYCHOLOGY PROFESSOR ) ) Arrival Mode Ambulatory Ambulatory,Cane Ambulatory Transfer Assistance None None Patient Identification Verified (Name & Yes Yes Yes ) Patient Requires Transmission-Based No No Precautions Safety Precautions NA Finger Stick Blood Sugar(mg/dl) (if 145 96 indicated): Blood Sugar Stated by Stated by Patient Patient Height and Weight Height 5 ft 6 in Weight 120.202 kg Weight in Pounds 265.0 lbs Weight Measurement Method Standing Scale Body Mass Index (BMI) 42.7 42.7 42.7 BMI Classification Obese Obese Obese BSA - Leslye 2.25 Vital Signs Temperature (97.8 F-99.1 F) 97.8 F 101 F H 97.6 F L Temperature Source Temporal Temporal Temporal Pulse Rate (60-100) 80 89 Pulse Location Monitor Monitor Monitor Respiratory Rate (12-18) 18 16 Respiratory rate source Observation Observation Oxygen Delivery Method Room Air Blood Pressure (90/60-120/80) 167/90 H 145/83 H 174/96 H Blood Pressure Mean (mm Hg) 115 103 122 Source Monitor Monitor Monitor Position Sitting Semi-Fowlers Sitting Blood Pressure Location Left Arm Left Arm Right Arm History Since Last Visit- (Skip if this is Patient's initial visit) Have you changed medications since your No No No last visit? Any new allergies or adverse reactions No No No Had a fall/change in ADL's that may No No No increase risk of falls Signs or symptoms of abuse and/or No No No neglect since last visit Have you been in the hospital since your No No No last visit? Has dressing in place as prescribed Yes Yes Yes Has compression in place as prescribed N/A N/A N/A Has offloadiing in place as prescribed N/A Yes Yes Experienced any changes in pain level or No No No management Left Footwear Regular Shoe Regular Shoe Right Footwear Regular Shoe Removable Cast Walker/Walking Boot Pain Scale: 0-10 Numeric Is Patient Pain Free? Yes Yes Yes WC - Nurse 1 - General Ulcer Measurement Start: 09/01/20 13:15 Freq: Status: Active Protocol: Activity Type Activity Date Activity User E-Sign Co-Sign Detail Recorded Client Recorded Date Recorded By Document 09/01/20 13:15 MS Desktop 09/01/20 13:25 MS Document 09/08/20 13:35 KR Desktop 09/08/20 13:41 KR Document 09/15/20 13:38 [facility] [id number] 09/15/20 13:43 [facility] 09/01/20 09/08/20 09/15/20 13:15 13:35 13:38 Wound Center Nurse 1 #2- R ANTERIOR ANKLE -Combined with other wound No -Current Size (cm) - Length 0.7 -Current Size (cm) - Width 0.5 -Current Size (cm) - Depth 0.1 -Total Square Cm 0.35 -Date of Last Picture (Recall this 09/15/20 field) -Photo Taken Yes -Epithelialization None Present -Tunneling No -Undermining/Tunneling No -Circular Undermining No -Exudate Amt Small -Exudate Type Serosanguineous -Wound Margin Flat & Intact -Granulation Amt Medium (34-66%) -Granulation Quality Red -Slough/Fibrin Yes -Necrosis Amt Medium (34-66%) -Necrotic Tissue Type Adherent Slough -Texture (Quynh-wound Skin Appearance) Assessed -Moisture (Quynh-wound Skin Appearance) Assessed -Color (Quynh-wound Skin Appearance) Assessed, Erythema -Temperature (Quynh-wound Skin No Abnormality Appearance) (Pt Warm) -Tenderness on Palpation (Quynh-wound No Skin Appearance) -Ulcer Cleansing SOAPY WATER -Anesthetic Used 4% Lidocaine Solution #1 RIGHT HALLUX PLANTAR -Combined with other wound No No -Current Size (cm) - Length 1.2 0.9 0.3 -Current Size (cm) - Width 2 1.5 0.4 -Current Size (cm) - Depth 0.2 0.5 0.2 -Total Square Cm 2.4 1.35 0.12 -Photo Taken No -Epithelialization None Present -Tunneling No -Undermining/Tunneling No -Circular Undermining No -Exudate Amt Small Small Small -Exudate Type Serosanguineous Serosanguineous Serosanguineous -Wound Margin Distinct, Distinct, Distinct, Outline Outline Outline Attached Attached Attached -Granulation Amt Small (1-33%) Small (1-33%) None Present (0 %) -Granulation Quality Red -Slough/Fibrin Yes Yes -Necrosis Amt Medium (34-66%) Small (1-33%) Large (67-100%) -Necrotic Tissue Type Adherent Slough Adherent Slough Adherent Slough -Texture (Quynh-wound Skin Appearance) No Abnormality Assessed, Assessed,Callus Scarring ,Scarring -Moisture (Quynh-wound Skin Appearance) No Abnormality No Abnormality, Assessed,Dry/ Assessed Scaly -Color (Quynh-wound Skin Appearance) No Abnormality No Abnormality, Assessed Assessed -Temperature (Quynh-wound Skin No Abnormality No Abnormality Appearance) (Pt Warm) (Pt Warm) -Tenderness on Palpation (Quynh-wound No Skin Appearance) -Ulcer Cleansing Wound Cleanser Rinsed/ soapy wter Irrigated with Saline -Foul Odor after Cleansing No No No -Anesthetic Used 4% Lidocaine 5% Lidocaine 4% Lidocaine Solution Gel Solution Right Calf (cm) 44.5 Right Ankle (cm) 27 Left Calf (cm) 44.5 Left Ankle (cm) 25.7 - Nurse 2 - General Ulcer CM Notes Start: 09/01/20 13:15 Freq: Status: Active Protocol: Activity Type Activity Date Activity User E-Sign Co-Sign Detail Recorded Client Recorded Date Recorded By Document 09/01/20 13:45 [id number] 09/01/20 13:51 Document 09/08/20 14:04 Laptop 09/08/20 14:10 09/01/20 09/08/20 13:45 14:04 Wound Center Nurse 2 #1 RIGHT HALLUX PLANTAR -Time 13:48 14:04 -Correct Patient Yes Yes -Correct Side, Site, Position Yes Yes -Correct Procedure Yes Yes -Procedure Performed Yes Yes -Type of Procedure Debridement Debridement -Clinical Debridement Subcutaneous Subcutaneous -Tissue Removed Subcutaneous Subcutaneous -Post Debridement (cm) - Length 1 1.0 -Post Debridement (cm) - Width 2 1.5 -Post Debridement (cm) - Depth 0.2 0.2 -Total Square (Post) (cm) 2 1.50 -Area of Debridement (cm) - Length 1 1.0 -Area of Debridement (cm) - Width 2 1.5 -Total Square (Area) (cm) 2 1.50 -Tunneling No No -Undermining/Tunneling No No -Circular Undermining No No -Wound/Ulcer Outcome Not Healed Not Healed -Ulcer Cleansing Rinsed/ Rinsed/ Irrigated with Irrigated with Saline Saline -Foul Odor after Cleansing No No -Bioengineered Tissue No Yes -Type of Bioengineered Tissue Epifix 18mm Disc -Expiration Date 05/31/25 -Product Lot Number [id number] -Percent Used 100 -Lot number of Saline Used [id number] -Bleeding Controlled with Pressure Pressure -Offloading Yes Yes -Type of Offloading Surgical Shoe Camwalker -Treatment Response Procedure Procedure Tolerated Well Tolerated Well -Debridement - Subq, 1st 20sq cm Yes No -Apply Skin Sub - 1st 25 sq cm - Feet 1 -Epifix 18mm Disc 3 Pain Scale: 0-10 Numeric Is Patient Pain Free? Yes Yes SANDRA - Nurse 3 - General Ulcer D/C NN Start: 09/01/20 13:15 Freq: Status: Active Protocol: Activity Type Activity Date Activity User E-Sign Co-Sign Detail Recorded Client Recorded Date Recorded By Document 09/01/20 14:14 RB Desktop 09/01/20 14:14 RB Document 09/15/20 14:29 [id number] 09/15/20 14:29 RUBI 09/01/20 09/15/20 14:14 14:29 Wound Care Nurse 3 #2- R ANTERIOR ANKLE -Primary Dressing Covered/Secured with Dry Gauze, Secured with Tape #1 RIGHT HALLUX PLANTAR -Ulcer Cleansing Wound Cleanser -Primary Dressing Applied Aquacel AG 4x4 -Primary Dressing Covered/Secured with Dry Gauze,Dry Dry Gauze, Gauze & Roll Secured with Gauze,Secured Tape with Tape -Aquacel AG 4x4 1 Treatment Response Procedure Tolerated Well Pain Scale: 0-10 Numeric Is Patient Pain Free? Yes Yes WC - Visit Discharge Discharge Condition Stable Stable Ambulatory Status Ambulatory Ambulatory Transportation Private Auto Private Auto Medication Reconcilliation completed & No provided to patient/care provider Clinical Summary of Care Provided Yes Wound debrided: right plantar hallux and right anterior ankle/lower leg Wound Grade/Stage: 1 Type of Debridement: Excisional debridement Anesthesia Used: 4% Lidocaine Solution Depth: in the subcutaneous layer Percentage of wound debrided: 100 Instrument Used: #15 blade Tissue Removed: fibrous, devitalized subcutaneous, biofilm, slough Severity: Fat Layer Exposed Amount of bleeding with debridement: Mild Bleeding Controlled with: Pressure Patient tolerated procedure: Patient tolerated procedure well Assessment/Plan Assessment/Plan (1) Type 2 diabetes mellitus with diabetic polyneuropathy: CODE(S): E11.42 - Type 2 diabetes mellitus with diabetic polyneuropathy QUALIFIERS: Diabetes mellitus detention insulin use: with superintendent terminal use Qualified Code(s): E11.42 - Type 2 diabetes mellitus with diabetic polyneuropathy; Z79.4 - ad terminal makeup operator (current) use of insulin (2) Chronic ulcer of great toe of right foot with fat layer exposed: CODE(S): L97.512 - Non-pressure chronic ulcer of other part of right foot with fat layer exposed (3) Type 2 diabetes mellitus with right diabetic foot ulcer: CODE(S): E11.621 - Type 2 diabetes mellitus with foot ulcer; L97.519 - Non-pressure chronic ulcer of other part of right foot with unspecified severity (4) Malnutrition: CODE(S): E46 - Unspecified protein-calorie malnutrition (5) Other specified peripheral vascular diseases: CODE(S): I73.89 - Other specified peripheral vascular diseases (6) Venous insufficiency (chronic) (peripheral): CODE(S): I87.2 - Venous insufficiency (chronic) (peripheral) (7) Localized edema: CODE(S): R60.0 - Localized edema (8) Non-pressure chronic ulcer of unspecified part of right lower leg with fat layer exposed: CODE(S): L97.912 - Non-pressure chronic ulcer of unspecified part of right lower leg with fat layer exposed PLAN: I reviewed and discussed his case today. Debridement was performed today as noted in the clinical panel to all of the ulcer sites. New ulcer site noted. The following work up and care recommendations were made: Dressing: Aquacel Ag Wash: Soap and water Tissue growth optimization: His ulcer is chronic and has been open for over 4 weeks. I recommend application of advanced wound healing product, epi fix, the indication, benefits, anticipated application was reviewed. This is donated placental tissue with over 300 growth factors. This is medically necessary for limb salvage. Prior authorization was obtained and verbal consent was obtained. This was applied according to standard protocol and was further secured in place with a wound veil and Steri-Strips. He tolerated this well (hallux location). 100% of the product was utilized. He was advised to keep this clean, dry, and intact until next week. Offload: To continue offloading surgical shoe use with offloading Plastizote liners. He was advised to avoid excessive walking or strap placement directly over his anterior ankle ulcer site. An aperture pad was applied to take pressure off of this ulcer site. Vascular: I recommend noninvasive arterial studies including RYAN, segmental pressures and systolic toe pressures. These were reviewed without abnormalities. He has good waveforms and normal ABIs. Edema: It is okay to wear Tubigrip and elevate. Venous Doppler with reflux evaluation was also ordered. There is not any venous insufficiency noted after reviewing these results. Infection: He was reassured no local signs infection are noted. To monitor for development. Pain: Not present due to neuropathy Host factors: His hemoglobin A1c is elevated and this may delay healing. His updated A1c was 9.7%. He is following up with Dr. Singh, sorting cows worker next week in which she will further discuss additional medication, diet, and activity modifications to optimize healing and diabetic control. Nutrition: I recommend improvement in nutrition. He was seen by [facility] gastroenterology teacher in the past and reports that he was not able to pursue the recommendations. He also realizes his nutrition plan is not allowing appropriate glucose management. I recommend implementing at least some of the recommendations. He refuses additional referral today. Labs: CBC, CMP. He did not proceed forward with his diagnostic data testing as advised including the labs and vascular studies. He will work on completing these. Imaging: He obtained a foot x-ray at the [facility] and this was reviewed without osseous destruction, soft tissue emphysema, acute injuries. I answered all the patient's questions. To return to the wound healing center in 1 week or call sooner if the patient has any questions or concerns. Note: [employer] speech recognition shallot packer software was used to create portions of this document. Sound-alike and misspelled words, as well as other shallot packer errors may be contained in the documentation. The medical decision making level is low. There is noted low risk of morbidity after considering this treatment plan and diagnostic data. The problems addressed require a low medical decision making level which includes two or more minor problems, a stable chronic illness, or an acute uncomplicated illness or injury. The medical decision making level is limited based on data including the review of prior external notes, review of a prior test, or ordering a test.
[2020-09-22 13:50] VITALS: BP 145/73; PULSE 72; TEMP 36.2; BMI 42.7
--- NOTE | 2020-09-22 14:24 | PN.PCM_ITS ---
History of Present Illness Date of Service: 09/22/20 Chief Complaint: Right great toe ulcer and right ankle ulcer History of Wound: This 50-year-old male with uncontrolled diabetes and hypertension was seen for right great toe ulcer. He does report loss of sensation consistent with neuropathy. He has been changing the dressing as advised. He denies claudication. He was provided with an offloading surgical shoe and wears it more consistently. He denies odor, redness, fever, chill, nausea, vomiting. He has been using an antibacterial pad to offload the ulcer to his ankle site. He denies drainage. Progress of Wound: Both sites are healing Objective Data Objective Data Vital Signs: Vital Signs Temp Pulse Resp BP 97.1 F L 72 16 145/73 H 09/22/20 13:50 09/22/20 13:50 09/15/20 13:38 09/22/20 13:50 Oxygen Delivery Method Room Air Weight: 120.202 kg Body Mass Index (BMI) 42.7 Physical Exam Const alert and oriented x3 General Appearance: cooperative HEENT normocephalic Extremity Extremity Narrative: No calf tenderness Diminished pulses 2/4 bilateral DP and 1/4 bilateral PT Muscle wasting noted Decreased limited first metatarsophalangeal joint range of motion General Extremity: edema and no tenderness to palpation of joints or extremities; Negative for cyanosis Skin Skin Narrative: no purulence, no streaking, no odor, no infection. There is hyperpigmentation to bilateral lower extremities. Full epithelialization is noted to the hallux and anterior ankle. His skin is atrophic and there is no drainage or necrosis or ecchymosis General Skin Exam: Negative for erythema Neuro Neuro Narrative: lack of normal epicritic sensation via light touch is consistent with neuropathy status Psych cooperative and affect normal Debridement Note Debridement Note Post-Debridement Measurements and Additional Note: Post-Debridement Measurements/Treatment WC - Nurse 1 - General Ulcer Assessment Start: 09/01/20 13:15 Freq: Status: Active Protocol: KIMMY Activity Type Activity Date Activity User E-Sign Co-Sign Detail Recorded Client Recorded Date Recorded By Document 09/01/20 13:15 ML Desktop 09/01/20 13:25 ML Document 09/08/20 13:35 KR Desktop 09/08/20 13:41 KR Document 09/15/20 13:38 BM [id number] 09/15/20 13:43 BMF Document 09/22/20 13:50 KR Desktop 09/22/20 13:59 KR 09/01/20 09/08/20 09/15/20 13:15 13:35 13:38 - Today's Visit Information Type of service Initial Visit Follow-up Visit Follow-up Visit (Physician/ELEMENTARY ASSISTANT PRINCIPAL (Physician/ELEMENTARY ASSISTANT PRINCIPAL ) ) Arrival Mode Ambulatory Ambulatory,Cane Ambulatory Transfer Assistance None None Patient Identification Verified (Name & Yes Yes Yes ) Patient Requires Transmission-Based No No Precautions Safety Precautions NA Finger Stick Blood Sugar(mg/dl) (if 145 96 indicated): Blood Sugar Stated by Stated by Patient Patient Height and Weight Height 5 ft 6 in Weight 120.202 kg Weight in Pounds 265.0 lbs Weight Measurement Method Standing Scale Body Mass Index (BMI) 42.7 42.7 42.7 BMI Classification Obese Obese Obese BSA - Leslye 2.25 Vital Signs Temperature (97.8 F-99.1 F) 97.8 F 101 F H 97.6 F L Temperature Source Temporal Temporal Temporal Pulse Rate (60-100) 80 89 Pulse Location Monitor Monitor Monitor Respiratory Rate (12-18) 18 16 Respiratory rate source Observation Observation Oxygen Delivery Method Room Air Blood Pressure (90/60-120/80) 167/90 H 145/83 H 174/96 H Blood Pressure Mean (mm Hg) 115 103 122 Source Monitor Monitor Monitor Position Sitting Semi-Fowlers Sitting Blood Pressure Location Left Arm Left Arm Right Arm History Since Last Visit- (Skip if this is Patient's initial visit) Have you changed medications since your No No No last visit? Any new allergies or adverse reactions No No No Had a fall/change in ADL's that may No No No increase risk of falls Signs or symptoms of abuse and/or No No No neglect since last visit Have you been in the hospital since your No No No last visit? Has dressing in place as prescribed Yes Yes Yes Has compression in place as prescribed N/A N/A N/A Has offloadiing in place as prescribed N/A Yes Yes Experienced any changes in pain level or No No No management Left Footwear Regular Shoe Regular Shoe Right Footwear Regular Shoe Removable Cast Walker/Walking Boot Pain Scale: 0-10 Numeric Is Patient Pain Free? Yes Yes Yes 09/22/20 13:50 WC - Today's Visit Information Type of service Follow-up Visit (Physician/ELEMENTARY ASSISTANT PRINCIPAL ) Arrival Mode Ambulatory,Cane Transfer Assistance Patient Identification Verified (Name & ) Patient Requires Transmission-Based Precautions Safety Precautions Finger Stick Blood Sugar(mg/dl) (if indicated): Blood Sugar Height and Weight Height Weight Weight in Pounds Weight Measurement Method Body Mass Index (BMI) 42.7 BMI Classification Obese [facility] - Leslye Vital Signs Temperature (97.8 F-99.1 F) 97.1 F L Temperature Source Temporal Pulse Rate (60-100) 72 Pulse Location Monitor Respiratory Rate (12-18) Respiratory rate source Oxygen Delivery Method Blood Pressure (90/60-120/80) 145/73 H Blood Pressure Mean (mm Hg) 97 Source Monitor Position Semi-Fowlers Blood Pressure Location Left Arm History Since Last Visit- (Skip if this is Patient's initial visit) Have you changed medications since your No last visit? Any new allergies or adverse reactions No Had a fall/change in ADL's that may No increase risk of falls Signs or symptoms of abuse and/or No neglect since last visit Have you been in the hospital since your No last visit? Has dressing in place as prescribed Yes Has compression in place as prescribed Yes Has offloadiing in place as prescribed N/A Experienced any changes in pain level or No management Left Footwear Right Footwear Pain Scale: 0-10 Numeric Is Patient Pain Free? Yes WC - Nurse 1 - General Ulcer Measurement Start: 09/01/20 13:15 Freq: Status: Active Protocol: Activity Type Activity Date Activity User E-Sign Co-Sign Detail Recorded Client Recorded Date Recorded By Document 09/01/20 13:15 ML Desktop 09/01/20 13:25 ML Document 09/08/20 13:35 KR Desktop 09/08/20 13:41 KR Document 09/15/20 13:38 [facility] [id number] 09/15/20 13:43 [facility] Document 09/22/20 13:50 KR Desktop 09/22/20 13:59 KR 09/01/20 09/08/20 09/15/20 13:15 13:35 13:38 Wound Center Nurse 1 #2- R ANTERIOR ANKLE -Combined with other wound No -Current Size (cm) - Length 0.7 -Current Size (cm) - Width 0.5 -Current Size (cm) - Depth 0.1 -Total Square Cm 0.35 -Date of Last Picture (Recall this 09/15/20 field) -Photo Taken Yes -Epithelialization None Present -Tunneling No -Undermining/Tunneling No -Circular Undermining No -Exudate Amt Small -Exudate Type Serosanguineous -Wound Margin Flat & Intact -Granulation Amt Medium (34-66%) -Granulation Quality Red -Slough/Fibrin Yes -Necrosis Amt Medium (34-66%) -Necrotic Tissue Type Adherent Slough -Texture (Quynh-wound Skin Appearance) Assessed -Moisture (Quynh-wound Skin Appearance) Assessed -Color (Quynh-wound Skin Appearance) Assessed, Erythema -Temperature (Quynh-wound Skin No Abnormality Appearance) (Pt Warm) -Tenderness on Palpation (Quynh-wound No Skin Appearance) -Ulcer Cleansing SOAPY WATER -Foul Odor after Cleansing -Anesthetic Used 4% Lidocaine Solution #1 RIGHT HALLUX PLANTAR -Combined with other wound No No -Current Size (cm) - Length 1.2 0.9 0.3 -Current Size (cm) - Width 2 1.5 0.4 -Current Size (cm) - Depth 0.2 0.5 0.2 -Total Square Cm 2.4 1.35 0.12 -Photo Taken No -Epithelialization None Present -Tunneling No -Undermining/Tunneling No -Circular Undermining No -Exudate Amt Small Small Small -Exudate Type Serosanguineous Serosanguineous Serosanguineous -Wound Margin Distinct, Distinct, Distinct, Outline Outline Outline Attached Attached Attached -Granulation Amt Small (1-33%) Small (1-33%) None Present (0 %) -Granulation Quality Red -Slough/Fibrin Yes Yes -Necrosis Amt Medium (34-66%) Small (1-33%) Large (67-100%) -Necrotic Tissue Type Adherent Slough Adherent Slough Adherent Slough -Texture (Quynh-wound Skin Appearance) No Abnormality Assessed, Assessed,Callus Scarring ,Scarring -Moisture (Quynh-wound Skin Appearance) No Abnormality No Abnormality, Assessed,Dry/ Assessed Scaly -Color (Quynh-wound Skin Appearance) No Abnormality No Abnormality, Assessed Assessed -Temperature (Quynh-wound Skin No Abnormality No Abnormality Appearance) (Pt Warm) (Pt Warm) -Tenderness on Palpation (Quynh-wound No Skin Appearance) -Ulcer Cleansing Wound Cleanser Rinsed/ soapy wter Irrigated with Saline -Foul Odor after Cleansing No No No -Anesthetic Used 4% Lidocaine 5% Lidocaine 4% Lidocaine Solution Gel Solution Right Calf (cm) 44.5 Right Ankle (cm) 27 Left Calf (cm) 44.5 Left Ankle (cm) 25.7 09/22/20 13:50 Wound Center Nurse 1 #2- R ANTERIOR ANKLE -Combined with other wound -Current Size (cm) - Length 0.2 -Current Size (cm) - Width 0.2 -Current Size (cm) - Depth 0.1 -Total Square Cm 0.04 -Date of Last Picture (Recall this field) -Photo Taken -Epithelialization -Tunneling -Undermining/Tunneling -Circular Undermining -Exudate Amt None Present -Exudate Type -Wound Margin Distinct, Outline Attached -Granulation Amt None Present (0 %) -Granulation Quality -Slough/Fibrin -Necrosis Amt None Present (0 %) -Necrotic Tissue Type -Texture (Quynh-wound Skin Appearance) Assessed, Scarring -Moisture (Quynh-wound Skin Appearance) No Abnormality, Assessed -Color (Quynh-wound Skin Appearance) No Abnormality, Assessed -Temperature (Quynh-wound Skin No Abnormality Appearance) (Pt Warm) -Tenderness on Palpation (Quynh-wound No Skin Appearance) -Ulcer Cleansing Rinsed/ Irrigated with Saline -Foul Odor after Cleansing No -Anesthetic Used 5% Lidocaine Gel #1 RIGHT HALLUX PLANTAR -Combined with other wound -Current Size (cm) - Length 0.1 -Current Size (cm) - Width 0.1 -Current Size (cm) - Depth 0.1 -Total Square Cm 0.01 -Photo Taken -Epithelialization -Tunneling -Undermining/Tunneling -Circular Undermining -Exudate Amt None Present -Exudate Type -Wound Margin Distinct, Outline Attached -Granulation Amt Small (1-33%) -Granulation Quality Red -Slough/Fibrin -Necrosis Amt None Present (0 %) -Necrotic Tissue Type -Texture (Quynh-wound Skin Appearance) Assessed, Scarring -Moisture (Quynh-wound Skin Appearance) No Abnormality, Assessed -Color (Quynh-wound Skin Appearance) No Abnormality, Assessed -Temperature (Quynh-wound Skin No Abnormality Appearance) (Pt Warm) -Tenderness on Palpation (Quynh-wound No Skin Appearance) -Ulcer Cleansing Rinsed/ Irrigated with Saline -Foul Odor after Cleansing No -Anesthetic Used 5% Lidocaine Gel Right Calf (cm) Right Ankle (cm) Left Calf (cm) Left Ankle (cm) WC - Nurse 2 - General Ulcer CM Notes Start: 09/01/20 13:15 Freq: Status: Active Protocol: Activity Type Activity Date Activity User E-Sign Co-Sign Detail Recorded Client Recorded Date Recorded By Document 09/01/20 13:45 [id number] 09/01/20 13:51 Document 09/08/20 14:04 Laptop 09/08/20 14:10 Document 09/15/20 17:39 PL [id number] 09/15/20 17:41 PL Edit Result 09/15/20 17:39 PL (1) [id number] 09/17/20 07:28 PL Document 09/22/20 14:19 JF [id number] 09/22/20 14:23 JF (1) #2- R ANTERIOR ANKLE - Debridement - Subq, 1st 20sq cm Yes => No #1 RIGHT HALLUX PLANTAR - Bioengineered Tissue No => Yes - Type of Bioengineered Tissue => Epifix 18mm Disc - Expiration Date => 05/31/25 - Product Lot Number => [id number] - Percent Used => 100 - Apply Skin Sub - 1st 25 sq cm - Feet => 1 - Epifix 18mm Disc => 3 09/01/20 09/08/20 09/15/20 13:45 14:04 17:39 Wound Center Nurse 2 #2- R ANTERIOR ANKLE -Time 14:15 -Correct Patient Yes -Correct Side, Site, Position Yes -Correct Procedure Yes -Procedure Performed Yes -Type of Procedure Debridement -Clinical Debridement Subcutaneous -Tissue Removed Subcutaneous -Post Debridement (cm) - Length 0.7 -Post Debridement (cm) - Width 0.5 -Post Debridement (cm) - Depth 0.1 -Total Square (Post) (cm) 0.35 -Area of Debridement (cm) - Length 0.7 -Area of Debridement (cm) - Width 0.5 -Total Square (Area) (cm) 0.35 -Tunneling No -Undermining/Tunneling No -Circular Undermining No -Wound/Ulcer Outcome Not Healed -Ulcer Cleansing Rinsed/ Irrigated with Saline -Foul Odor after Cleansing No -Bioengineered Tissue No -Bleeding Controlled with Pressure -Treatment Response Procedure Tolerated Well -Debridement - Subq, 1st 20sq cm No #1 RIGHT HALLUX PLANTAR -Time 13:48 14:04 14:15 -Correct Patient Yes Yes Yes -Correct Side, Site, Position Yes Yes Yes -Correct Procedure Yes Yes Yes -Procedure Performed Yes Yes Yes -Type of Procedure Debridement Debridement Debridement -Clinical Debridement Subcutaneous Subcutaneous Subcutaneous -Tissue Removed Subcutaneous Subcutaneous Subcutaneous -Post Debridement (cm) - Length 1 1.0 0.3 -Post Debridement (cm) - Width 2 1.5 0.4 -Post Debridement (cm) - Depth 0.2 0.2 0.2 -Total Square (Post) (cm) 2 1.50 0.12 -Area of Debridement (cm) - Length 1 1.0 0.3 -Area of Debridement (cm) - Width 2 1.5 0.4 -Total Square (Area) (cm) 2 1.50 0.12 -Tunneling No No No -Undermining/Tunneling No No No -Circular Undermining No No No -Wound/Ulcer Outcome Not Healed Not Healed Not Healed -Ulcer Cleansing Rinsed/ Rinsed/ Rinsed/ Irrigated with Irrigated with Irrigated with Saline Saline Saline -Foul Odor after Cleansing No No No -Bioengineered Tissue No Yes Yes -Type of Bioengineered Tissue Epifix 18mm Epifix 18mm Disc Disc -Expiration Date 05/31/25 05/31/25 -Product Lot Number [id number] -Percent Used 100 100 -Lot number of Saline Used [id number] -Bleeding Controlled with Pressure Pressure Pressure -Offloading Yes Yes -Type of Offloading Surgical Shoe Camwalker -Treatment Response Procedure Procedure Procedure Tolerated Well Tolerated Well Tolerated Well -Debridement - Subq, 1st 20sq cm Yes No No -Apply Skin Sub - 1st 25 sq cm - Feet 1 1 -Epifix 18mm Disc 3 3 Pain Scale: 0-10 Numeric Is Patient Pain Free? Yes Yes Yes 09/22/20 14:19 Wound Center Nurse 2 #2- R ANTERIOR ANKLE -Time -Correct Patient No -Correct Side, Site, Position No -Correct Procedure No -Procedure Performed No -Type of Procedure -Clinical Debridement -Tissue Removed -Post Debridement (cm) - Length 0 -Post Debridement (cm) - Width 0 -Post Debridement (cm) - Depth 0 -Total Square (Post) (cm) 0 -Area of Debridement (cm) - Length 0 -Area of Debridement (cm) - Width 0 -Total Square (Area) (cm) 0 -Tunneling -Undermining/Tunneling -Circular Undermining -Wound/Ulcer Outcome Healed- Epithelialized -Ulcer Cleansing -Foul Odor after Cleansing -Bioengineered Tissue -Bleeding Controlled with -Treatment Response -Debridement - Subq, 20sq cm #1 RIGHT HALLUX PLANTAR -Time -Correct Patient No -Correct Side, Site, Position No -Correct Procedure No -Procedure Performed No -Type of Procedure -Clinical Debridement -Tissue Removed -Post Debridement (cm) - Length 0 -Post Debridement (cm) - Width 0 -Post Debridement (cm) - Depth 0 -Total Square (Post) (cm) 0 -Area of Debridement (cm) - Length 0 -Area of Debridement (cm) - Width 0 -Total Square (Area) (cm) 0 -Tunneling -Undermining/Tunneling -Circular Undermining -Wound/Ulcer Outcome Healed- Epithelialized -Ulcer Cleansing -Foul Odor after Cleansing -Bioengineered Tissue -Type of Bioengineered Tissue -Expiration Date -Product Lot Number -Percent Used -Lot number of Saline Used -Bleeding Controlled with -Offloading -Type of Offloading -Treatment Response -Debridement - Subq, 20sq cm -Apply Skin Sub - 1st 25 sq cm - Feet -Epifix 18mm Disc Pain Scale: 0-10 Numeric Is Patient Pain Free? Yes WC - Nurse 3 - General Ulcer D/C NN Start: 09/01/20 13:15 Freq: Status: Active Protocol: Activity Type Activity Date Activity User E-Sign Co-Sign Detail Recorded Client Recorded Date Recorded By Document 09/01/20 14:14 RB Desktop 09/01/20 14:14 RB Document 09/15/20 14:29 KR [id number] 09/15/20 14:29 KR 09/01/20 09/15/20 14:14 14:29 Wound Care Nurse 3 #2- R ANTERIOR ANKLE -Primary Dressing Covered/Secured with Dry Gauze, Secured with Tape #1 RIGHT HALLUX PLANTAR -Ulcer Cleansing Wound Cleanser -Primary Dressing Applied Aquacel AG 4x4 -Primary Dressing Covered/Secured with Dry Gauze,Dry Dry Gauze, Gauze & Roll Secured with Gauze,Secured Tape with Tape -Aquacel AG 4x4 1 Treatment Response Procedure Tolerated Well Pain Scale: 0-10 Numeric Is Patient Pain Free? Yes Yes WC - Visit Discharge Discharge Condition Stable Stable Ambulatory Status Ambulatory Ambulatory Transportation Private Auto Private Auto Medication Reconcilliation completed & No provided to patient/care provider Clinical Summary of Care Provided Yes Assessment/Plan Assessment/Plan (1) Type 2 diabetes mellitus with diabetic polyneuropathy: CODE(S): E11.42 - Type 2 diabetes mellitus with diabetic polyneuropathy QUALIFIERS: Diabetes mellitus senior living insulin use: with intermediate manager use Qualified Code(s): E11.42 - Type 2 diabetes mellitus with diabetic polyneuropathy; Z79.4 - intermediate frame tender (current) use of insulin (2) Chronic ulcer of great toe of right foot with fat layer exposed: CODE(S): L97.512 - Non-pressure chronic ulcer of other part of right foot with fat layer exposed (3) Type 2 diabetes mellitus with right diabetic foot ulcer: CODE(S): E11.621 - Type 2 diabetes mellitus with foot ulcer; L97.519 - Non-pressure chronic ulcer of other part of right foot with unspecified severity (4) Malnutrition: CODE(S): E46 - Unspecified protein-calorie malnutrition (5) Localized edema: CODE(S): R60.0 - Localized edema PLAN: I reviewed and discussed his case today. All of his ulcer sites are healed and therefore debridement was Performed. The following work up and care recommendations were made: Dressing: Discontinue because the ulcer site has healed Wash: Soap and water Tissue growth optimization: He did well with advanced wound healing product. Offload: To continue offloading Cam walker boot use with offloading Plastizote liners to allow continued skin remodeling over the next 2 weeks to prevent ulcer recurrence. A new aperture pad was provided to keep pressure off of the anterior ankle. He was advised to avoid excessive walking or strap placement directly over his anterior ankle ulcer site. Vascular: I recommend noninvasive arterial studies including RYAN, segmental pressures and systolic toe pressures. These were reviewed without abnormalities. He has good waveforms and normal ABIs. Edema: It is okay to wear Tubigrip and elevate. Venous Doppler with reflux evaluation was also ordered. There is not any venous insufficiency noted after reviewing these results. Infection: He was reassured no local signs infection are noted. To monitor for development. Pain: Not present due to neuropathy Labs: CBC, CMP. He did not proceed forward with his diagnostic data testing as advised including the labs and vascular studies. He will work on completing these. Imaging: He obtained a foot x-ray at the [facility] and this was reviewed without osseous destruction, soft tissue emphysema, acute injuries. I answered all the patient's questions. He is discharged from the wound healing center at this time. He is scheduled to follow-up with Dr. Adamson at the foot and ankle Center already. Note: QRuso speech recognition felt cutter software was used to create portions of this document. Sound-alike and misspelled words, as well as other felt cutter errors may be contained in the documentation. The medical decision making level is low. There is noted low risk of morbidity after considering this treatment plan and diagnostic data. The problems addressed require a low medical decision making level which includes two or more minor problems, a stable chronic illness, or an acute uncomplicated illness or injury. The medical decision making level is limited based on data including the review of prior external notes, review of a prior test, or ordering a test.
== END 2020-09-22 14:36 | disposition home or self-care (01) ==
LOC: WC 13:45
PROVIDERS: Referring Provider Podiatrist; Visit Provider Podiatrist
DX: E11.621 Type 2 diabetes mellitus with foot ulcer (principal); I10 Essential (primary) hypertension; L97.512 Non-pressure chronic ulcer of other part of right foot with fat layer exposed; E78.2 Mixed hyperlipidemia; Z79.899 Other long term (current) drug therapy; Z79.4 Long term (current) use of insulin; Z79.82 Long term (current) use of aspirin; E11.42 Type 2 diabetes mellitus with diabetic polyneuropathy; I87.2 Venous insufficiency (chronic) (peripheral); R60.0 Localized edema; E11.51 Type 2 diabetes mellitus with diabetic peripheral angiopathy without gangrene
CPT/HCPCS: 11042; 15275; 36415; 83036; 93923; 99213; Q4186; G0463

== ENCOUNTER 2021-05-03 15:03 | Outpatient (CLI) | payer MEDICAID, SELFPAY ==
[2021-05-03 18:08] LABS: M R Staph aureus DNA By PCR Negative (Negative); Probe Check PASS; Specimen Processing Control PASS; Staph aureus DNA By PCR NEGATIVE (Negative)
== END 2021-05-03 23:59 | disposition short-term general hospital (02) ==
LOC: LABSPEC 15:06
PROVIDERS: Referring Provider Podiatrist; Visit Provider Podiatrist
DX: L03.115 Cellulitis of right lower limb (principal)
CPT/HCPCS: 87070; 87075; 87077; 87186; 87205; 87640

== ENCOUNTER 2021-05-13 11:05 | Outpatient (CLI) | payer MEDICAID, SELFPAY ==
[2021-05-13 11:44] LABS: Absolute Lymphocyte Count 1.49 X10^3/uL (0.83-4.51); Absolute Neutrophil Count 3.7 X10^3/uL (2.0-7.7); Basophil# 0.06 X10^3/uL; Eosinophils% 6.4 % (0-5); Hematocrit 45.8 % (40-54); Hemoglobin 14.9 g/dL (13.0-16.5); Lymphocyte # 1.49 X10^3/ul (0.83-4.51); Lymphocyte % 23.9 % (19-41); Mean Corp Hgb Conc 32.5 g/dL (32-36); Mean Corpuscular Hgb 26.6 pg (27.0-32.0); Mean Corpuscular Volume 81.6 fL (80-94); Mean Platelet Vol. 9.9 fl (6.2-12.0); Monocyte# 0.56 X10^3/uL; NRBC Flagged by Analyzer 0 % (0-5); Neutrophil # 3.71 X10^3/uL (2.7-7.7); Neutrophil % 59.4 % (47-70); Platelet Count 249 K/mm3 (150-450); RBC Distribution Width CV 13.7 % (11.6-14.6); Red Blood Count 5.61 M/mm3 (4.6-6.2); White Blood Count 6.2 K/mm3 (4.4-11.0)
[2021-05-13 12:24] LABS: ALB/GLOB Ratio 0.8 RATIO (0.9-2.4); AST(SGOT) 18 U/L (15-37); Alanine Aminotransfer ALT/SGPT 32 U/L (16-61); Albumin, Serum 3.7 g/dL (3.2-5.0); Alkaline Phosphatase 104 U/L (45-117); Anion Gap 5 (5-15); BUN 13 mg/dL (7-18); BUN/Creat Ratio 11.8 RATIO (10-20); Calcium,Total 8.6 mg/dL (8.5-10.1); Chloride 101 mmol/L (98-107); Cholesterol 198 mg/dL (200); EST Glomerular Filtration Rate 75 mL/min (>60); Est Glom Filt Rate - Afr Amer 91 mL/min (>60); Globulin 4.8 g/dL (2.2-4.2); Glucose 289 mg/dL (74-106); High Density Lipoprotein 39 mg/dL; PSA,Total - Annual Screen 0.44 ng/mL (0.00-4.00); Potassium 3.9 mmol/L (3.5-5.1); Protein, Total 8.5 g/dL (6.4-8.2); Sodium Level 136 mmol/L (136-145); Thyroid Stim Hormone (TSH) 1.57 uIU/mL (0.358-3.74); Triglycerides 256 mg/dL; Very Low Density Lipoprotein 51 mg/dL (5-40)
== END 2021-05-13 23:59 | disposition home or self-care (01) ==
PROVIDERS: Visit Provider Nurse Practitioner Adult Health
DX: I10 Essential (primary) hypertension (principal); Z12.5 Encounter for screening for malignant neoplasm of prostate
CPT/HCPCS: 84153; 36415; 80053; 80061; 84443; 85025; G0103

== ENCOUNTER → 2022-03-24 | Outpatient (CLI) | payer MEDICAID, SELFPAY ==
[2022-03-24 10:56] LABS: Vitamin D,25 Hydroxy 18.6 ng/mL
[2022-03-24 11:03] LABS: BUN 13 mg/dL (7-18); BUN/Creat Ratio 10.9 RATIO (10-20); Creatinine, Serum 1.19 mg/dL (0.70-1.30); EST Glomerular Filtration Rate 69 mL/min (>60); Est Glom Filt Rate - Afr Amer 83 mL/min (>60); Glucose 118 mg/dL (74-106); Protein, Total 8.4 g/dL (6.4-8.2)
[2022-03-24 11:04] LABS: ALB/GLOB Ratio 0.9 RATIO (0.9-2.4); AST(SGOT) 19 U/L (15-37); Alanine Aminotransfer ALT/SGPT 35 U/L (16-61); Alkaline Phosphatase 93 U/L (45-117); Anion Gap 5 (5-15); Calcium,Total 8.7 mg/dL (8.5-10.1); Chloride 104 mmol/L (98-107); Cholesterol 196 mg/dL (200); Globulin 4.4 g/dL (2.2-4.2); High Density Lipoprotein 35 mg/dL; Potassium 3.8 mmol/L (3.5-5.1); Sodium Level 140 mmol/L (136-145); Thyroid Stim Hormone (TSH) 1.53 uIU/mL (0.358-3.74); Triglycerides 245 mg/dL; Very Low Density Lipoprotein 49 mg/dL (5-40)
[2022-03-24 12:52] LABS: Microalbumin:Creatinine Ratio 114.7 mg/g CRE (<30 mg/g CRE)
== END | disposition home or self-care (01) ==
PROVIDERS: PCP Nurse Practitioner Family; Referring Provider Nurse Practitioner Family; Visit Provider Nurse Practitioner Family
DX: E11.9 Type 2 diabetes mellitus without complications (principal)
CPT/HCPCS: 36415; 80053; 80061; 82043; 82306; 82570; 84443

== ENCOUNTER → 2022-07-28 | Outpatient (CLI) | payer MEDICAID, SELFPAY ==
[2022-07-28 08:31] LABS: Absolute Lymphocyte Count 1.41 X10^3/uL (0.83-4.51); Absolute Neutrophil Count 3.6 X10^3/uL (2.0-7.7); Basophil# 0.06 X10^3/uL; Eosinophil# 0.24 X10^3/uL; Eosinophils% 4.2 % (0-5); Hematocrit 42.8 % (40-54); Hemoglobin 14.1 g/dL (13.0-16.5); Lymphocyte # 1.41 X10^3/ul (0.83-4.51); Lymphocyte % 24.5 % (19-41); Mean Corp Hgb Conc 32.9 g/dL (32-36); Mean Corpuscular Hgb 26.8 pg (27.0-32.0); Mean Corpuscular Volume 81.4 fL (80-94); Mean Platelet Vol. 10.1 fl (6.2-12.0); Monocyte# 0.48 X10^3/uL; Monocyte% 8.3 % (0-10); NRBC Flagged by Analyzer 0 % (0-5); Neutrophil # 3.56 X10^3/uL (2.7-7.7); Neutrophil % 61.8 % (47-70); Platelet Count 185 K/mm3 (150-450); RBC Distribution Width CV 13.8 % (11.6-14.6); Red Blood Count 5.26 M/mm3 (4.6-6.2); White Blood Count 5.8 K/mm3 (4.4-11.0)
[2022-07-28 09:14] LABS: Alanine Aminotransfer ALT/SGPT 27 U/L (16-61); Anion Gap 0 (5-15); BUN 11 mg/dL (7-18); BUN/Creat Ratio 8.9 RATIO (10-20); Calcium,Total 8.8 mg/dL (8.5-10.1); Chloride 106 mmol/L (98-107); Cholesterol 166 mg/dL (200); Creatinine, Serum 1.23 mg/dL (0.70-1.30); EST Glomerular Filtration Rate 66 mL/min (>60); Est Glom Filt Rate - Afr Amer 80 mL/min (>60); Glucose 218 mg/dL (74-106); High Density Lipoprotein 30 mg/dL; Potassium 4.6 mmol/L (3.5-5.1); Sodium Level 135 mmol/L (136-145); Thyroid Stim Hormone (TSH) 1.31 uIU/mL (0.358-3.74); Triglycerides 189 mg/dL; Very Low Density Lipoprotein 38 mg/dL (5-40)
== END | disposition home or self-care (01) ==
DX: I10 Essential (primary) hypertension (principal)
CPT/HCPCS: 36415; 80048; 80061; 84443; 84460; 85025

== ENCOUNTER → 2022-11-09 | Outpatient (CLI) | payer MEDICAID, SELFPAY ==
--- NOTE | 2022-11-12 17:02 | STRESSREP_ITS ---
Stress Test Report Date: 11/09/2022 Procedure: Exercise tolerance test Indications: Dyspnea Consent: Per the patient Procedure: The patient exercised on a Nayan protocol for 3 minutes achieving a peak heart rate of 133 bpm (78% predicted maximal heart rate) with a peak blood pressure 190/90 mmHg and a peak MET capacity of approximately 4.6 MET's. The baseline ECG demonstrated normal sinus rhythm. The peak exercise ECG demonstrated no significant ischemic changes. [There were no cardiac dysrhythmias pretest, during exercise, or recovery]. The functional capacity was considered decreased for age. The patient had no complaint of chest discomfort during exercise or recovery. The examination was discontinued secondary to leg discomfort. Impression: 1. Inability to reach 85% of maximal age-predicted heart rate decreases the sensitivity of this test. Consider pharmacological stress test if ischemia evaluation is still felt to be required 2. Stress test is negative for exercise-induced chest pain. 3. Stress test test is negative for exercise-induced EKG changes of ischemia. 4. Functional capacity is [decreased for age] This note was generated with [employer] software. It may contain incorrect words, spelling, and punctuation that were not noted in checking the note before signing.
== END | disposition home or self-care (01) ==
LOC: CVS 10:01
PROVIDERS: Referring Provider Nurse Practitioner Family; Visit Provider Nurse Practitioner Family
DX: R06.09 Other forms of dyspnea (principal); E10.40 Type 1 diabetes mellitus with diabetic neuropathy, unspecified; I10 Essential (primary) hypertension
CPT/HCPCS: 93017

== ENCOUNTER → 2023-01-24 | Outpatient (CLI) | payer MEDICAID, SELFPAY ==
[2023-01-24 11:13] LABS: Hematocrit 38.1 % (40-54); Mean Corp Hgb Conc 31.5 g/dL (32-36); Mean Corpuscular Hgb 25.6 pg (27.0-32.0); Mean Corpuscular Volume 81.4 fL (80-94); Mean Platelet Vol. 10.9 fl (6.2-12.0); Platelet Count 193 K/mm3 (150-450); RBC Distribution Width CV 13.8 % (11.6-14.6); RBC Distribution Width SD 40.5 fl (35.1-43.9); Red Blood Count 4.68 M/mm3 (4.6-6.2); White Blood Count 5.9 K/mm3 (4.4-11.0)
[2023-01-24 11:28] LABS: Microalbumin:Creatinine Ratio 83.8 mg/g CRE (<30 mg/g CRE)
[2023-01-24 11:40] LABS: Anion Gap 2 (5-15); BUN 17 mg/dL (7-18); BUN/Creat Ratio 15.2 RATIO (10-20); Calcium,Total 8.3 mg/dL (8.5-10.1); Chloride 111 mmol/L (98-107); Creatinine, Serum 1.12 mg/dL (0.70-1.30); EST Glomerular Filtration Rate 73 mL/min (>60); Est Glom Filt Rate - Afr Amer 89 mL/min (>60); Glucose 202 mg/dL (74-106); Potassium 3.9 mmol/L (3.5-5.1); Sodium Level 140 mmol/L (136-145)
[2023-01-26 09:02] LABS: Iron 41 ug/dL (65-175); Iron Binding Capacity,Total 326 ug/dL (250-450); PERCENT IRON SATURATION 12.6 % (15.0-55.0)
== END | disposition home or self-care (01) ==
DX: I10 Essential (primary) hypertension (principal); E83.10 Disorder of iron metabolism, unspecified
CPT/HCPCS: 36415; 80048; 82043; 82570; 83540; 83550; 85027

== ENCOUNTER → 2023-02-28 | Outpatient (CLI) | payer MEDICAID, SELFPAY ==
[2023-02-28 15:01] LABS: Absolute Lymphocyte Count 1.62 X10^3/uL (0.83-4.51); Absolute Neutrophil Count 5.5 X10^3/uL (2.0-7.7); Basophil# 0.06 X10^3/uL; Basophil% 0.7 % (0-1); Eosinophil# 0.35 X10^3/uL; Eosinophils% 4.2 % (0-5); Hematocrit 44.5 % (40-54); Hemoglobin 14.1 g/dL (13.0-16.5); Lymphocyte # 1.62 X10^3/ul (0.83-4.51); Lymphocyte % 19.4 % (19-41); Mean Corp Hgb Conc 31.7 g/dL (32-36); Mean Corpuscular Hgb 25.9 pg (27.0-32.0); Mean Corpuscular Volume 81.8 fL (80-94); Mean Platelet Vol. 10.2 fl (6.2-12.0); Monocyte% 9.6 % (0-10); NRBC Flagged by Analyzer 0 % (0-5); Neutrophil % 65.9 % (47-70); Platelet Count 235 K/mm3 (150-450); RBC Distribution Width CV 13.6 % (11.6-14.6); RBC Distribution Width SD 40.3 fl (35.1-43.9); Red Blood Count 5.44 M/mm3 (4.6-6.2); White Blood Count 8.4 K/mm3 (4.4-11.0)
[2023-02-28 15:32] LABS: ALB/GLOB Ratio 0.7 RATIO (0.9-2.4); AST(SGOT) 10 U/L (15-37); Alanine Aminotransfer ALT/SGPT 14 U/L (16-61); Albumin, Serum 3.5 g/dL (3.2-5.0); Alkaline Phosphatase 84 U/L (45-117); Anion Gap 5 (5-15); BUN 14 mg/dL (7-18); Calcium,Total 8.3 mg/dL (8.5-10.1); Chloride 106 mmol/L (98-107); Creatinine, Serum 1.27 mg/dL (0.70-1.30); EST Glomerular Filtration Rate 63 mL/min (>60); Est Glom Filt Rate - Afr Amer 77 mL/min (>60); Glucose 179 mg/dL (74-106); PSA,Total - Annual Screen 0.65 ng/mL (0.00-4.00); Potassium 4.3 mmol/L (3.5-5.1); Protein, Total 8.5 g/dL (6.4-8.2); Sodium Level 141 mmol/L (136-145); Thyroid Stim Hormone (TSH) 1.04 uIU/mL (0.358-3.74)
== END | disposition home or self-care (01) ==
LOC: LAB 14:40
PROVIDERS: Visit Provider Nurse Practitioner Family
DX: R63.4 Abnormal weight loss (principal); Z12.5 Encounter for screening for malignant neoplasm of prostate
CPT/HCPCS: 84153; 36415; 80053; 84443; 85025; G0103

== ENCOUNTER → 2023-03-08 | Outpatient (CLI) | payer MEDICAID, SELFPAY ==
--- NOTE | 2023-03-08 10:02 | RAD_ITS ---
INDICATION: Persistent cough for couple months/SOB EXAMINATION/TECHNIQUE: X-RAY - XR Chest 2 Views COMPARISON: 04/23/2014. FINDINGS: Mild peribronchial cuffing. Tortuous and calcified thoracic aorta. The heart is mildly enlarged. No pleural effusion or pneumothorax. Degenerative changes of the thoracic spine. RAD/Chest PA and Lateral IMPRESSION: Mild peribronchial cuffing which can be seen in small airways disease such as bronchitis. Electronically Signed: Tae Babcock MD at 21:34 EST ,
== END | disposition home or self-care (01) ==
LOC: RAD 09:54
PROVIDERS: Referring Provider Surgery; Visit Provider Surgery
DX: R05.3 Chronic cough (principal); R06.02 Shortness of breath
CPT/HCPCS: 71046

== ENCOUNTER → 2023-03-22 | Outpatient (CLI) | payer MEDICAID, SELFPAY ==
--- NOTE | 2023-03-22 16:35 | STRESSREP ---
Stress Test Report Pharmacologic myocardial perfusion stress test. 53-year-old man with a history of dyspnea Resting EKG demonstrates sinus rhythm with a rate of 67 bpm. Resting blood pressure is 134/70 mmHg. 0.4 mg of regadenoson was infused per usual protocol followed by rapid intravenous saline flush injection. Continuous EKG monitoring was performed. The maximum heart rate was 90 bpm which was 53% of max impacted heart rate the maximum workload was 1 metabolic equivalent. At rest there were no ST or T wave changes noted to suggest ischemia and at peak infusion nonspecific ST changes were noted which did not meet the criteria for ischemia. No clinical angina is noted. The final blood pressure was 130/64 mmHg. Myocardial perfusion protocol. 14.9 mCi of technetium 99m sestamibi was injected at rest. 0.4 mg of regadenoson was infused per usual protocol. At peak infusion 44.3 mCi of technetium 99m sestamibi was injected stress images were obtained stress and rest images were reconstructed and compared in the short axis vertical long and horizontal long axis. Gated images were also obtained. Perfusion SPECT analysis: Review of the stress images demonstrate normal uptake of tracer noted in all areas of the myocardium. The resting images similar demonstrated normal uptake of tracer noted in all areas of the myocardium. No areas of reversibility are noted to suggest ischemia and no previous infarct is noted. Gated SPECT analysis: The gated ejection fraction is 47%. Conclusion: Normal pharmacologic myocardial perfusion stress test. Low normal ejection fraction.
== END | disposition home or self-care (01) ==
PROVIDERS: Referring Provider Nurse Practitioner Family; Visit Provider Nurse Practitioner Family
DX: R06.09 Other forms of dyspnea (principal); I10 Essential (primary) hypertension; E78.5 Hyperlipidemia, unspecified
CPT/HCPCS: 78452; 93017; A9500; A4216; J2785

== ENCOUNTER 2023-04-26 06:22 | Day surgery (SDC) | payer MEDICAID, SELFPAY ==
[2023-04-26] VITALS (7 sets, daily range): BP systolic 137–159; BP diastolic 94–101; PULSE 70–82; RESP 16; TEMP 36.1–36.8; O2SAT 96–100; BMI 35.6
--- OUTSIDE RECORDS SUMMARY | 2023-04-26 06:27 | XMS RPT_ITS | CCD ---
Demographics Address [address] [place] [address] Preferred Language Unknown Marital Status Single Religion Affiliation Unknown Race White Ethnic Group Unknown Author Name Unknown Address [address] [place] [address] Organization [facility] Results Test Name Value Interpretation Reference Range Facil ity Progress note 12-08-2020 Note Date & Type Note Facility 12-08-2020 Note HNO ID: [id number] Author: Myron French PA-C Service: ? Author Type: Physician Automation Technologist Type: Progress Notes Filed: 12/08/2020 6:49 PM Note Text: [facility] [place] Some elements copied from my previous note, which have been updated where appropriate, and all reflect current medical decision making from date of this visit. [facility] UROLOGY PATIENT INFO: Lauren Lee 50 year old HPI: Lauren Lee 50 year old male who presents today for LUTS of urgency and frequency, after reviewing the patients chart and discussing is current LUTS the glycosuria is The most likely cause for his urgency , dicussed his need to control the diabetes better and that the glucose in his urine will cause urgency. He is emptying his bladder well And weaker stream so will keep an eye on prostate but having glucose in the urine will lead to UTI and other problems with urine in the bladder. Recommend a trial of Ditropan and for him to get a PCP to discuss the DM II and control PCP had patient stop the Ditropan and started him on Myrbetriq 25 mg , some improvement of the urgency with Mybetriq GUROS: Irritative - NTF yes Urgency yes Frequency yes MEDICATIONS: Current Outpatient Medications Medication Sig Dispense Refill - mirabegron (MYRBETRIQ) 50 mg Tb24 Take 1 tablet by mouth once daily. - meloxicam (MOBIC) 15 mg tablet Take 7.5 mg by mouth twice daily. - amLODIPine (NORVASC) 5 mg tablet Take 5 mg by mouth once daily. - escitalopram oxalate (LEXAPRO) 20 mg tablet Take 20 mg by mouth once daily. - pantoprazole DR (PROTONIX) 40 mg tablet Take 40 mg by mouth once daily. - losartan (COZAAR) 100 mg tablet Take 100 mg by mouth once daily. - hydroCHLOROthiazide (HYDRODIURIL, ESIDRIX) 25 mg tablet Take 25 mg by mouth once daily. - gabapentin (NEURONTIN) 300 mg capsule Take 300 mg by mouth twice daily. - mv-mn/iron/folic acid/herb 190 (VITAMIN D3 COMPLETE ORAL) Take 1.25 mg by mouth one time a week. - rosuvastatin (CRESTOR) 10 mg tablet Take 10 mg by mouth once daily. - insulin regular, human (HUMULIN R U-500, CONC, KWIKPEN SUBCUTANEOUS) Inject subcutaneously. - metFORMIN (GLUCOPHAGE) 1,000 mg tablet Take 1 tablet by mouth twice daily with meals. . 60 tablet 3 - lisinopril (ZESTRIL, PRINIVIL) 10 mg tablet Take 10 mg by mouth once daily. - insulin detemir (LEVEMIR) 100 unit/mL (3 mL) inpn injection Inject 30 Units subcutaneously twice daily. 5 Pen 3 - Fenofibrate (LOFIBRA) 160 mg tablet Take 1 tablet by mouth once daily. 30 tablet 3 - aspirin, enteric coated (ASPIR-LOW) 81 mg EC tablet Take 1 tablet by mouth once daily. 0 - atorvastatin (LIPITOR) 20 mg tablet Take 1 tablet by mouth daily at bedtime. For cholesterol. 30 tablet 5 - famotidine (PEPCID) 20 mg tablet Take 1 tablet by mouth at bedtime as needed. 30 tablet 5 - insulin aspart (NOVOLOG FLEXPEN) 100 unit/mL inpn Inject 20 Units subcutaneously three times daily with meals. 10 Pen 5 - lisinopril (PRINIVIL) 5 mg tablet Take 1 tablet by mouth once daily. 30 tablet 5 No current facility-administered medications for this visit. MEDICATION ALLERGIES: ALLERGIES No Known Allergies PAST MEDICAL HISTORY: PAST MEDICAL HISTORY Diagnosis Date - Acid reflux - Diabetes mellitus (HCC) age 20 onset - HTN (hypertension) - Hyperlipidemia REVIEW OF SYSTEMS: GENERAL: No fever, chills, weight loss, or fatigue. DIABETES: yes PHYSICAL EXAM: There were no vitals taken for this visit. GENERAL:WNL nutrition, no deformities, healthy appearing Procedures: Bladder Scan: 0 ml LABS: Urine dip shows: Results for orders placed or performed in visit on 11/16/20 UA DIP, URINE (POC) Result Value Ref Range GLUCOSE UA (POCT) 100 (A) Negative mg/dL BILIRUBIN UA (POCT) Negative Negative KETONE UA (POCT) Negative Negative mg/dL SPECIFIC GRAVITY UA (POCT) 1.025 1.005 - 1.030 HEMOGLOBIN/BLOOD UA (POCT) Negative Negative PH UA (POCT) 6.0 4.5 - 8.0 PROTEIN UA (POCT) 30 (A) Negative mg/dL UROBILINOGEN UA (POCT) 2.0 (A) Normal E.U./dL NITRITE UA (POCT) Negative Negative LEUKOCYTES UA (POCT) Trace (A) Negative COLOR UA (POCT) Yellow CLARITY UA (POCT) Clear ASSESSMENT/PLAN: 50 year old male with Urgency and Frequency , NTF every hour, Glycosuria has improved some > PCP follow up > Started on Myrbetriq 25 mg Follow up 3 month with BREANN Stephen MT, PA-C for follow up BREANN Reinoso MT, PA-C [facility] Progress note 08-17-2020 Note Date & Type Note Facility 08-17-2020 Note HNO ID: [id number] Author: Myron French PA-C Service: ? Author Type: Physician Automation Technologist Type: Progress Notes Filed: 08/17/2020 2:42 PM Note Text: [facility] [place] [facility] UROLOGY CONSULT PATIENT INFO: Lauren Lee 50 year old REFERRING PROVIDER: Wilmar De Paz PCP: No primary care provider on file. HPI: Lauren Lee 50 year old male who presents today for LUTS of urgency and frequency, after reviewing the patients chart and discussing is current LUTS the glycosuria is The most likely cause for his urgency , dicussed his need to control the diabetes better and that the glucose in his urine will cause urgency. He is emptying his bladder well And weaker stream so will keep an ey on prostate but having glucose in the urine will lead to UTI and other problems with urine in the bladder. Recommend a trial of Ditropan and for him to get a PCP to discuss the DM II and control GUROS: Obstructive - weak stream: yes, hesitancy: no, Intermittency: no, Double voiding no post-void dribbling: no incomplete emptying: no Irritative - NTF yes Urgency yes Frequency yes Dysuria no Incontinence no 0 Pads Gross Hematuria no Microscopic Hematuria ( 2 of 3 UA w/Micro showed 3-5 RBC's) No MEDICATIONS: Current Outpatient Medications Medication Sig Dispense Refill - rosuvastatin (CRESTOR) 10 mg tablet Take 10 mg by mouth once daily. - lisinopril (ZESTRIL, PRINIVIL) 10 mg tablet Take 10 mg by mouth once daily. - insulin regular, human (HUMULIN R U-500, CONC, KWIKPEN SUBCUTANEOUS) Inject subcutaneously. - aspirin, enteric coated (ASPIR-LOW) 81 mg EC tablet Take 1 tablet by mouth once daily. 0 - famotidine (PEPCID) 20 mg tablet Take 1 tablet by mouth at bedtime as needed. 30 tablet 5 - insulin detemir (LEVEMIR) 100 unit/mL (3 mL) inpn injection Inject 30 Units subcutaneously twice daily. 5 Pen 3 - metFORMIN (GLUCOPHAGE) 1,000 mg tablet Take 1 tablet by mouth twice daily with meals. . 60 tablet 3 - Fenofibrate (LOFIBRA) 160 mg tablet Take 1 tablet by mouth once daily. 30 tablet 3 - atorvastatin (LIPITOR) 20 mg tablet Take 1 tablet by mouth daily at bedtime. For cholesterol. 30 tablet 5 - insulin aspart (NOVOLOG FLEXPEN) 100 unit/mL inpn Inject 20 Units subcutaneously three times daily with meals. 10 Pen 5 - lisinopril (PRINIVIL) 5 mg tablet Take 1 tablet by mouth once daily. 30 tablet 5 No current facility-administered medications for this visit. MEDICATION ALLERGIES: ALLERGIES No Known Allergies PAST MEDICAL HISTORY: PAST MEDICAL HISTORY Diagnosis Date - Acid reflux - Diabetes mellitus (HCC) age 20 onset - HTN (hypertension) - Hyperlipidemia PAST SURGICAL HISTORY: PAST SURGICAL HISTORY Procedure Laterality Date - EYE SURGERY HX childhood FAMILY HISTORY Problem Relation Age of Onset - Diabetes Mother - Diabetes Father - Heart Father SOCIAL HISTORY: Social History Tobacco Use - Smoking status: Former Smoker Packs/day: 0.10 Years: 1.00 Pack years: 0.10 Types: Cigarettes - Smokeless tobacco: Never Used - Tobacco comment: 3 cigarettes daily x 1-2 years Substance Use Topics - Alcohol use: Yes Comment: occasional - Drug use: No REVIEW OF SYSTEMS: GENERAL: No fever, chills, weight loss, or fatigue. ENMT: Negative CARDIOVASCULAR:NO CHEST PAIN, PALPITATIONS, ANKLE EDEMA RESPIRATORY: No chronic cough, wheezing, dyspnea, hemoptysis. GENITOURINARY: SEE HPI MUSCULOSKELETAL:NO CHRONIC BACK PAIN, ARTHRITIS, CHRONIC NECK PAIN SKIN: NO VARICOSE VEINS, RASH, ABNORMAL ITCHING HEME/LYMPH/IMMUNE:Negative for prolonged bleeding, bruising easily or swollen nodes NEUROLOGICAL: NO HEADACHES, NUMBNESS, SEIZURES, STROKE DIABETES: yes All other systems reviewed and are negative PHYSICAL EXAM: Blood pressure 122/78, pulse 68, temperature 37.4 ?C (99.3 ?F), temperature source Temporal Artery, weight 113.9 kg (251 lb). GENERAL:WNL nutrition, no deformities, healthy appearing NEURO: Awake, alert and oriented x 3 and Normal gait PSYCH: No signs of depression, anxiety, or agitation ENMT (Ear, Nose, Mouth, Throat): No masses, adenopathy, icterus. Thyroid nonpalpable RESP: NL effort, no retractions or purse-lip breathing. CV: No extremity swelling, varices, edema, pallor, erythema GASTROINTESTINAL: Soft, nontender, nondistended, no masses. HERNIAS: None SKIN: No rash, lesions No palpable lymphadenopathy MUSCULOSKELETAL: Extremities normal. No deformities, edema, clubbing or skin discoloration. GENITOURINARY: MALE EXAM: Rectal Exam: Deferred Procedures: Bladder Scan: 0 ml LABS: Urine dip shows: Results for orders placed or performed in visit on 08/17/20 UA DIP, URINE (POC) Result Value Ref Range GLUCOSE UA (POCT) >=1000 (A) Negative mg/dL BILIRUBIN UA (POCT) Negative Negative KETONE UA (POCT) Negative Negative mg/dL SPECIFIC GRAVITY UA (POCT) >=1.030 1.005 - 1.030 HEMOGLOBIN (more content not included)... [facility] Summary Purpose Family History No Family History Records FoundNo Family History Records FoundNo Family History Records Found Advance Directives No Advanced Directives Records FoundNo Advanced Directives Records FoundNo Advanced Directives Records Found Additional Source Comments (unrecognized sect ion and content) No Status Records FoundNo Status Records FoundNo Status Records Found INFORMATION SOURCE (unrecogn ized section and content) DATE CREATED AUTHOR AUTHOR'S ORGANIZ ATION 09/10/2019 [facility] DATE CREATED AUTHOR AUTHOR'S ORGANIZ ATION 05/03/[address] [facility] FOR RECORDS PERTAINING TO PATIENTS WHO ARE OR HAVE BEEN ENROLLED IN A CHEMICAL DEPENDENCY/SUBSTANCEABUSE PROGRAM, SOME INFORMATION MAY BE OMITTED. This clinical summary was aggregated from multiple sources. Caution should be exercised in using it in the provision of clinical care. This summary normalizes information from multiple sources, and as a consequence, information in this document may materially change the coding, format and clinical context of patient data. In addition, data may be omitted in some cases. CLINICAL DECISIONS SHOULD BE BASED ON THE PRIMARY CLINICAL RECORDS. [facility] [employer] provides no warranty or guarantee of the accuracy or completeness of information in this document.
[2023-04-26] MEDS: Lactated Ringers 1,000 ML 15 ML IV (06:51)
[2023-04-26 07:17] LABS: Bedside Glucose 124 mg/dL (74-106)
--- NOTE | 2023-04-26 07:28 | HP.PCM_ITS ---
History and Physical Date of Admission: 04/26/23 Date of Service: 03/08/23 MR#: [id number] Acct: [id number] Name: LAUREN ELE Rep #: [id number] : 1970 Provider: Dr. Jose Kumar MD Age/Sex: 52/M Location: [facility] Status: Signed Intake Vital Signs 02/19/2310:09 03/08/2309:21 Height 5 ft 6 in 5 ft 6 in Weight: 234 lb 229 lb 6 oz BMI 37.8 37.0 BP 156/98 H 155/92 H Blood Pressure Location Lt brachial Rt brachial Position Sitting Sitting Respiration 16 18 Pulse 70 92 Pulse Source Monitor Monitor Temp 97.8 F 97.1 F L Temp Source Temporal Temporal Pulse Oximetry (%) 97 97 Oxygen Delivery Method room air room air Intake Visit Reasons: UNEXPLAINED WEIGTH LOSS Chief Complaint: Unexplained weight loss Racecar Driver Required: No Is patient in pain?: No Allergies No Known Allergies Allergy (Verified 03/08/23 09:24) Medications aspirin 81 mg chewable tablet 81 mg PO DAILY@0800 ##30 04/25/14 [Rx Confirmed 03/08/23] naproxen 500 mg tablet 500 mg PO BID PRN #20 tabs 02/03/20 [Rx Confirmed 03/08/23] FreeStyle Kanu 14 Day [place] (flash glucose scanning reader) #1 ea 09/06/20 [Rx Confirmed 03/08/23] FreeStyle Kanu 14 Day Sensor (flash glucose sensor) #2 ea 09/06/20 [Rx Confirmed 03/08/23] lancets 33 gauge (E-Z Ject Lancets) #100 ea 09/06/20 [Rx Confirmed 03/08/23] blood sugar diagnostic (True Metrix Glucose Test Strip) #100 ea 05/09/21 [Rx Confirmed 03/08/23] amlodipine 10 mg tablet 10 mg PO DAILY #90 tabs 03/23/22 [Rx Confirmed 03/08/23] escitalopram oxalate 20 mg tablet (Lexapro) 20 mg PO DAILY 08/31/22 [History Confirmed 03/08/23] pen needle, diabetic 32 gauge x 5/32 (BD Ultra-Fine Radha Pen Needle) #100 ea 11/08/22 [Rx Confirmed 03/08/23] dulaglutide 1.5 mg/0.5 mL subcutaneous pen injector (Trulicity) 1.5 mg (0.5 mL) subcut QWEEK #2 mL 02/19/23 [Rx Confirmed 03/08/23] blood-glucose sensor (FreeStyle Kanu 3 Sensor device) #2 ea 02/20/23 [Rx Confirmed 03/08/23] amoxicillin 875 mg-potassium clavulanate 125 mg tablet 1 tab PO BID 03/08/23 [History Confirmed 03/08/23] cholecalciferol (vitamin D3) 1,250 mcg (50,000 unit) capsule 50,000 unit PO QWEEK 03/08/23 [History] ferrous sulfate 325 mg (65 mg iron) tablet (FeroSul) 325 mg PO BID 03/08/23 [History Confirmed 03/08/23] gabapentin 300 mg capsule 300 mg PO QHS 03/08/23 [History Confirmed 03/08/23] hydrochlorothiazide 12.5 mg tablet 25 mg PO DAILY 03/08/23 [History] insulin regular hum U-500 conc 500 unit/mL(3 mL) subcut pen (Humulin R U-500 (Conc) Insulin Kwikpen) 80 unit subcut TID 03/08/23 [History] losartan 50 mg tablet 50 mg PO BID 03/08/23 [History Confirmed 03/08/23] metformin 500 mg tablet 500 mg PO BID 03/08/23 [History Confirmed 03/08/23] prazosin 1 mg capsule 1 mg PO QHS 03/08/23 [History Confirmed 03/08/23] rosuvastatin 10 mg tablet 20 mg PO DAILY 03/08/23 [History] [facility] Medical History (Updated 03/08/23 @ 15:[address] Jose Kumar MD) Benign essential hypertension, age 0-18 Charcot foot due to diabetes mellitus Chronic ulcer of great toe of right foot with fat layer exposed Hyperlipidemia Hypertension Localized edema Malnutrition Mixed hyperlipidemia Neuropathy Non-pressure chronic ulcer of unspecified part of right lower leg with fat layer exposed Obesity (BMI 30-39.9) Other specified peripheral vascular diseases Polyneuropathy due to type 1 diabetes mellitus Type 1 diabetes mellitus Type 2 diabetes mellitus with diabetic polyneuropathy Type 2 diabetes mellitus with right diabetic foot ulcer Venous insufficiency (chronic) (peripheral) Vitamin D deficiency Weight loss Surgical History (Updated 03/08/23 @ 09:18 by Nakia Cueto) History of eye surgery Family History Father Diabetes Kidney diseaseMother Diabetes Social History (Updated 03/08/23 @ 09:21 by Nakia Cueto) Smoking Status: Never smoker alcohol intake: current alcohol intake frequency: holidays/special occasions only substance use type: does not use HPI HPI HPI: Patient is a 52-year-old male who presents for need to schedule diagnostic colonoscopy secondary to recent rapid weight loss. [facility] Patient has not had prior colonoscopy. He estimates that he has lost approximately 50 pounds since the beginning of this year descending from a maximum weight of 280 pounds to 229 pounds today. He confirms that his appetite has experienced no change and he shares that he is still eating 2 meals per day. When asked if there is any correlation between his diabetes control, he shares this is unlikely and that his diabetes control has been bouncing up and down . Asked about any other significant changes in his health history he reports that he has experienced a cough for the last 3 months that is nonproductive and dry. He shares that several rounds of antibiotics have done little to improve this cough. He also denies that there has been any blood associated with this cough. He confirms that he is a non-smoker, but has significant secondhand smoke exposure from both of his parents, his grandparents, and close friends. 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 Beyond the above, Mr. Lee confirms that he has experienced night sweats at least 3 times in the last 1 month. He relates that he believes this was connected to an infectious cause. He also shares that he has recently overcome some swollen, tender nodules in his neck. They describe their bowel habits as normal . They have approximately 3-4 per day with some occasional straining. They do suggest that this frequency is an increase over there prior normal frequency of 1 time per day where they suggest they were just a year ago. They have not noticed recent bleeding or dark stools. They do not regularly take fiber supplements. However, they do report a history of iron use which they confirm is related to history of low blood counts. Patient has no family history of colon cancer, inflammatory bowel disease, or diverticulitis. The patient is not prescribed anticoagulants/blood thinners. Relevant prior abdominal surgical history includes: None Patient does not have a significant history of GERD/heartburn. ROS General General: Yes weight change; No appetite, fatigue, colon cancer, breast cancer or weakness Additional Details: Weight loss of nearly 50 pounds this year HEENT HEENT: Yes difficulty swallowing and swollen glands; No eye injury, eye surgery or hoarseness Endo Endocrine: Yes diabetes mellitus; No thyroid disease, thyroid cancer, Hair loss, heat intolerance or cold intolerance Skin Skin: No rash or changing moles Breast Breast: No left breast lump, right breast lump, nipple discharge, breast pain, abnormal mammogram, abnormal US or breast enlargement Musc Musculoskeletal: No back problems, arthritis, rheumatoid arthritis, gout or joint pain Cardio Cardiovascular: No murmur, pacemaker, heart disease, atrial fibrillation, high blood pressure, heart attack, heart stent, palpitations, shortness of breat with exertion or chest pain Psych Psychiatric: Yes depression and anxiety; No hearing voices Resp Respiratory: Yes shortness of breath, No sleep apnea, Yes cough, No COPD, No asthma, No emphysema and No wheezing Gastro Gastrointestinal: No abdominal pain, No nausea or vomiting, No diarrhea, No constipation, No blood in stool, No acid reflux, No hemorrhoids, No ulcers, No gallbladder problem and No black,tarry stools [place] Hematologic: Yes blood thinners, No blood disorders, No bleeding, No anemia and No blood clots Neuro Neurologic: No system reviewed and no additional complaints, except as documented, No as per HPI, No abnormal gait, No abnormal hearing, No abnormal movements, No abnormal speech, No behavioral changes, No burning sensations, No confusion, No convulsions, No disequilibrium, No dizziness, No localized weakness, No frequent falls, No headache(s), No lack of coordination, No loss of vision, No memory loss, No numbness, No other visual disturbances, No radicular pain, No restless legs, No sensory deficit, No syncope, No tingling, No tremor(s), No weakness and No other Exam Const General: cooperative and anxious Orientation: alert, awake and oriented x3 Neck Lymphatic: no lymphadenopathy noted Resp Effort & Inspection: normal respiratory effort Other: Clear to auscultation bilaterally, mild inspiratory wheezes (particularly on the right). No rales or rhonchi Assessment and Plan Assessment and Plan (1) Unexplained weight loss: Status: Acute Comment: This is a 52-year-old male who presents for consideration of colonoscopy given history of recent unintentional weight loss. Patient has experienced weight loss of approximately 50 pounds in the last year. There is no good explanation for this weight loss, however, he does remark of an increase in his bowel movement frequency. Otherwise he denies any specific GI complaints. Additionally, he is reporting a chronic cough with some associated night sweats and lymphadenopathy. Therefore, I find it reasonable to proceed with a diagnostic colonoscopy to assess for possible occult malignancy?especially since patient has never received colon cancer screening and he is 6 years past due. However, I believe the differential should still include alternative causes and would name possible lymphoma versus lung cancer versus other amongst those causes. In an effort to further the workup for patient's refractory cough I am ordering a chest x-ray today. I would like him to either resolve this issue or receive a better explanation for this cough before undergoing our procedure. Plan: ? Plan will be to complete colonoscopy on first mutually agreeable date under local MAC. Pre-procedure prep discussed and paper instructions provided. Patient is also made aware that he will need to have a driver material handler with him the day of the procedure. ? Chest x-ray as above (2) Cough present for greater than 3 weeks: Status: Acute Comment: Nonproductive cough refractory to antibiotics present for 3 months. Patient with significant secondhand exposure to smoke. I have examined the patient the following changes are noted: Patient denies any further weight loss and confirms that his weight is stabilized. He denies any further cough and believes that his most recent course of antibiotics was finally effective. He denies any changes to his bowel habits and confirms that his prep?completed in anticipation of today's procedure?was successful and that his output is now clear. He denies any further questions for today's planned colonoscopy so we will proceed to the endoscopy suite for its completion at this time.
--- NOTE | 2023-04-26 08:21 | OP.CCLET_ITS ---
04/26/2023 [facility] Re : Colonoscopy procedure for Zoraida Lee [facility] This procedure was performed on April. My impressions and recommendations are as follows: Impressions : - Foreign body in the rectum, in the sigmoid colon, in the descending colon and in the transverse colon. - No specimens collected. - The procedure was aborted due to inadequate bowel prep. Recommendations : - Discharge patient to home (via wheelchair). - Resume previous diet today. - Continue present medications. - Repeat colonoscopy because the bowel preparation was poor. My findings are described in the full procedure note, which is enclosed. If I can be of further assistance, please feel free to contact me at Doctor phone number(s): , Work: . Sincerely, Jose Kumar MD 04/26/2023 8:20:24 AM This report has been signed electronically.
--- NOTE | 2023-04-26 08:21 | OP.COLON_ITS ---
Patient Name: Zoraida Lee Procedure Date: 04/26/2023 6:31 AM Date of : 1970 Age: 53 Procedure: Colonoscopy Indications: Weight loss Providers: Jose Kumar MD Medicines: See the Anesthesia note for documentation of the administered medications Patient Profile: Refer to note in patient chart for documentation of history and physical. Last Colonoscopy: none. The patient's first colonoscopy is today. Complications: No immediate complications. Estimated blood loss: None. Procedure: Pre-Anesthesia Assessment: - The heart rate, respiratory rate, oxygen saturations, blood pressure, adequacy of pulmonary ventilation, and response to care were monitored throughout the procedure. After I obtained informed consent, the scope was passed under direct vision. Throughout the procedure, the patient's blood pressure, pulse, and oxygen saturations were monitored continuously. The Colonoscope was introduced through the anus and advanced to the ascending colon. The colonoscopy was technically difficult and complex due to inadequate bowel prep. Successful completion of the procedure was aided by lavage. The patient tolerated the procedure well. The quality of the bowel preparation was 40 percent obscured. Scope In: 6:43:10 AM Scope Withdrawal Time 0 hours 6 minutes 30 seconds Scope Out: 8:05:03 AM Total Procedure Duration Time 1 hour 21 minutes 53 seconds Findings: The perianal and digital rectal examinations were normal. Pertinent negatives include normal sphincter tone. A foreign body was found in the rectum, in the sigmoid colon, in the descending colon and in the transverse colon. Lavage of the area was performed using a moderate amount of normal saline, resulting in incomplete clearance with continued poor visualization. Impression: - Foreign body in the rectum, in the sigmoid colon, in the descending colon and in the transverse colon. - No specimens collected. - The procedure was aborted due to inadequate bowel prep. Recommendation: - Discharge patient to home (via wheelchair). - Resume previous diet today. - Continue present medications. - Repeat colonoscopy because the bowel preparation was poor. Procedure Code(s): --- Professional --- 32188, 53, Colonoscopy, flexible; diagnostic, including collection of specimen(s) by brushing or washing, when performed (separate procedure) Diagnosis Code(s): --- Professional --- T18.5XXA, Foreign body in anus and rectum, initial encounter T18.4XXA, Foreign body in colon, initial encounter R63.4, Abnormal weight loss CPT copyright 2021 [employer]. All rights reserved. The codes documented in this report are preliminary and upon switchboard receptionist review may be revised to meet current compliance requirements. Jose Kumar MD 04/26/2023 8:20:24 AM This report has been signed electronically. Number of Addenda: 0 Note Initiated On: 04/26/2023 6:31 AM
== END 2023-04-26 09:12 | disposition home or self-care (01) ==
LOC: EN 06:24 → AC 06:31
PROVIDERS: Visit Provider Surgery
PROC: 0DJD8ZZ Inspection of Lower Intestinal Tract, Via Natural or Artificial Opening Endoscopic (ICD-10-PCS; CPT 45378; principal; 2023-04-26 07:25)
DX: R63.4 Abnormal weight loss (principal); E10.42 Type 1 diabetes mellitus with diabetic polyneuropathy; Z79.4 Long term (current) use of insulin; Z68.37 Body mass index [BMI] 37.0-37.9, adult; I10 Essential (primary) hypertension; E55.9 Vitamin D deficiency, unspecified; D64.9 Anemia, unspecified; G43.909 Migraine, unspecified, not intractable, without status migrainosus; E78.00 Pure hypercholesterolemia, unspecified; T18.5XXA Foreign body in anus and rectum, initial encounter; T18.4XXA Foreign body in colon, initial encounter; Z79.84 Long term (current) use of oral hypoglycemic drugs; Z79.899 Other long term (current) drug therapy; Z87.891 Personal history of nicotine dependence; X58.XXXA Exposure to other specified factors, initial encounter; Z79.82 Long term (current) use of aspirin
CPT/HCPCS: 45378; 82962; J7120; J2405

== ENCOUNTER → 2023-05-08 | Outpatient (CLI) | payer MEDICAID, SELFPAY ==
--- NOTE | 2023-05-08 08:44 | ECHOD_ITS ---
Reason For Study: DYSPNEA Procedure This was a 2D Doppler, Color Flow transthoracic echocardiogram. Exam performed in department. Left Ventricle Normal size and thickness. The left ventricular ejection fraction is 65 %. Normal diastology for age. Right Ventricle Normal right ventricle. Atria The left and right atria are normal. Mitral Valve The mitral valve is structurally normal. No prolapse or stenosis seen. Tricuspid Valve Mild tricuspid valve insufficiency. Normal pulmonary artery pressure. Aortic Valve Trisinus/trileaflet aortic valve. Mild (1+) aortic valve insufficiency. Pulmonic Valve The pulmonic valve is not well visualized. Great Vessels Normal sized aortic root. Pericardium/Pleural No pericardial effusion. MMode/2D Measurements & Calculations LVIDd: 5.5 cm IVSd: 0.87 cm Ao root diam: 3.3 cm LVIDs: 3.8 cm LVPWd: 0.88 cm RVDd: 2.9 cm FS: 31.7 % LAV(MOD-bp): 45.2 ml LVAd ap4: 27.9 cm2 LVAd ap2: 24.4 cm2 LAV(MOD-bp) Indexed: 21.6 ml/m2 LVLd ap4: 8.1 cm LVLd ap2: 8.5 cm LAV(MOD-sp2): 38.6 ml EDV(MOD-sp4): 79.5 ml EDV(MOD-sp2): 60.8 ml LAV(MOD-sp4): 48.0 ml EDV(sp4-el): 82.1 ml EDV(sp2-el): 59.5 ml LVAs ap4: 15.4 cm2 LVAs ap2: 12.8 cm2 LVLs ap4: 6.3 cm LVLs ap2: 6.5 cm ESV(MOD-sp4): 34.0 ml ESV(MOD-sp2): 21.2 ml ESV(sp4-el): 32.2 ml ESV(sp2-el): 21.3 ml EF(MOD-sp4): 57.3 % EF(MOD-sp2): 65.2 % EF(sp4-el): 60.8 % SV(MOD-sp4): 45.6 ml SV(MOD-sp2): 39.7 ml SV(sp4-el): 49.9 ml LA dimension(2D): 3.9 cm LA A4 area: 17.0 cm2 RA A4 area: 11.6 cm2 Time Measurements MV dec time: 0.24 sec Doppler Measurements & Calculations MV E max hrett: 75.6 cm/sec Lat Peak E' Rhett: 12.1 cm/sec Med Peak E' Rhett: 10.2 cm/sec MV A max rhett: 68.7 cm/sec E/E' lat: 6.2 E/E' med: 7.4 MV E/A: 1.1 MV V2 max: 107.1 cm/sec MV P1/2t max rhett: 107.1 cm/sec Ao V2 max: 97.6 cm/sec MV max P.6 mmHg MV P1/2t: 78.3 msec Ao max P.8 mmHg MV V2 mean: 55.3 cm/sec MV dec slope: 401.0 cm/sec2 Ao V2 mean: 68.4 cm/sec MV mean P.5 mmHg Ao mean P.1 mmHg MV V2 VTI: 31.3 cm MVA(P1/2t): 2.8 cm2 Ao V2 VTI: 24.2 cm AV (velocity ratio): 0.94 AI max rhett: 353.1 cm/sec LV V1 max: 107.3 cm/sec PA V2 max: 78.6 cm/sec AI max P.9 mmHg LV V1 max P.6 mmHg PA V2 mean: 53.4 cm/sec AI dec slope: 198.7 cm/sec2 LV V1 mean P.2 mmHg AI P1/2t: 520.6 msec LV V1 mean: 67.9 cm/sec LV V1 VTI: 22.8 cm TR max rhett: 267.2 cm/sec TR max P.6 mmHg ECHO/Echo Complete Interpretation Summary The left ventricular ejection fraction is 65 %. Mild (1+) aortic valve insufficiency. Mild tricuspid valve insufficiency. Ordering Physician: Adriana Rene Referring Physician: Adriana Rene Performed By: Nakia Araiza RDCS, RVT
--- OUTSIDE RECORDS SUMMARY | 2023-05-08 09:06 | XMS RPT_ITS | CCD ---
Demographics Address [address] [place] [address] Preferred Language Unknown Marital Status Single Moravian Affiliation Unknown Race White Ethnic Group Unknown Author Name Unknown Address [address] [place] [address] Organization [facility] Results Test Name Value Interpretation Reference Range Facil ity Progress note 12-08-2020 Note Date & Type Note Facility 12-08-2020 Note HNO ID: [id number] Author: Myron French PA-C Service: ? Author Type: Physician Customs Compliance Specialist Type: Progress Notes Filed: 12/08/2020 6:49 PM Note Text: [facility] Some elements copied from my previous note, which have been updated where appropriate, and all reflect current medical decision making from date of this visit. [facility] PATIENT INFO: Lauren Lee 50 year [...] for follow up BREANN Reinoso MT, PA-C [facility] Progress note 08-17-2020 Note Date & Type Note Facility 08-17-2020 Note HNO ID: [id number] Author: Myron French PA-C Service: ? Author Type: Physician Customs Compliance Specialist Type: Progress Notes Filed: 08/17/2020 2:42 PM Note Text: [facility] CONSULT PATIENT INFO: Lauren Lee 50 [...] - 1.030 HEMOGLOBIN (more content not included)... [facility] Summary Purpose Family History No Family [...] DATE CREATED AUTHOR AUTHOR'S ORGANIZ ATION 09/10/2019 [facility] Reference Lab DATE CREATED AUTHOR AUTHOR'S ORGANIZ ATION 05/03/2021 [facility] FOR RECORDS PERTAINING TO PATIENTS WHO [...] BE BASED ON THE PRIMARY CLINICAL RECORDS. [facility] [employer] provides no warranty or guarantee of the accuracy or completeness of information in this document.
== END | disposition home or self-care (01) ==
LOC: CVS 08:42
PROVIDERS: Referring Provider Nurse Practitioner Family; Visit Provider Nurse Practitioner Family
DX: R06.09 Other forms of dyspnea (principal); R94.39 Abnormal result of other cardiovascular function study
CPT/HCPCS: 93306

== ENCOUNTER 2023-06-01 05:57 | Day surgery (SDC) | payer MEDICARE, MEDICAID, SELFPAY ==
--- OUTSIDE RECORDS SUMMARY | 2023-06-01 06:06 | XMS RPT_ITS | CCD ---
Demographics Address [address] [place] [address] Preferred Language Unknown Marital Status Single Restorationist Affiliation Unknown Race White Ethnic Group Unknown Author Name Unknown Address [address] [place] [address] Organization [facility] Results Test Name Value Interpretation Reference Range Facil ity Progress note 12-08-2020 Note Date & Type Note Facility 12-08-2020 Note HNO ID: [id number] Author: Myron French PA-C Service: ? Author Type: Physician Passenger Barge Master Type: Progress Notes Filed: 12/08/2020 6:49 PM Note Text: [facility] [place] Some elements copied from my previous note, which have been updated where appropriate, and all reflect current medical decision making from date of this visit. [facility] UR[facility]Y PATIENT INFO: Lauren Lee 50 [...] for follow up BREANN Reinoso MT, PA-C [facility] Progress note 08-17-2020 Note Date & Type Note Facility 08-17-2020 Note HNO ID: [id number] Author: Myron French PA-C Service: ? Author Type: Physician Passenger Barge Master Type: Progress Notes Filed: 08/17/2020 2:42 PM Note Text: [facility] [place] [facility] UROLOG[facility] CONS[facility] PATIENT INFO: Lauren Lee [...] - 1.030 HEMOGLOBIN (more content not included)... [facility] Summary Purpose Family History No Family History [...] DATE CREATED AUTHOR AUTHOR'S ORGANIZ ATION 09/10/2019 [facility] Reference Lab DATE CREATED AUTHOR AUTHOR'S ORGANIZ ATION 05/03/2021 [facility] FOR RECORDS PERTAINING TO PATIENTS WHO ARE [...] BE BASED ON THE PRIMARY CLINICAL RECORDS. [facility] [employer] provides no warranty or guarantee of the accuracy or completeness of information in this document.
[2023-06-01 06:38] VITALS: BP 145/98; PULSE 69; RESP 12; TEMP 36.2; O2SAT 100; BMI 35.0
[2023-06-01] MEDS: Lactated Ringers 1,000 ML 15 ML IV (06:45)
[2023-06-01 07:06] LABS: Bedside Glucose 92 mg/dL (74-106)
--- NOTE | 2023-06-01 07:37 | HP.PCM_ITS ---
History and Physical Date of Admission: 06/01/23 Date of Service: 03/08/23 MR#: [id number] Acct: [id number] Name: LAUREN LEE Rep #: [id number] : 1970 Provider: Dr. Jose Kumar MD Age/Sex: 52/M Location: [facility] Status: Signed Intake Vital Signs 02/19/2310:09 03/08/2309:21 Height 5 ft 6 in 5 ft 6 in Weight: 234 lb 229 lb 6 oz BMI 37.8 37.0 BP 156/98 H 155/92 H Blood Pressure Location Lt brachial Rt brachial Position Sitting Sitting Respiration 16 18 Pulse 70 92 Pulse Source Monitor Monitor Temp 97.8 F 97.1 F L Temp Source Temporal Temporal Pulse Oximetry (%) 97 97 Oxygen Delivery Method room air room air Intake Visit Reasons: UNEXPLAINED WEIGTH LOSS Chief Complaint: Unexplained weight loss School Guidance Counselor Required: No Is patient in pain?: No Allergies No Known Allergies Allergy (Verified 03/08/23 09:24) Medications aspirin 81 mg chewable tablet 81 mg PO DAILY@0800 ##30 04/25/14 [Rx Confirmed 03/08/23] naproxen 500 mg tablet 500 mg PO BID PRN #20 tabs 02/03/20 [Rx Confirmed 03/08/23] FreeStyle Kanu 14 Day [place] (flash glucose scanning reader) #1 ea 09/06/20 [Rx Confirmed 03/08/23] FreeStyle Kanu 14 Day Sensor (flash glucose sensor) #2 ea 09/06/20 [Rx Confirmed 03/08/23] lancets 33 gauge (E-Z Ject Lancets) #100 ea 09/06/20 [Rx Confirmed 03/08/23] blood sugar diagnostic (True Metrix Glucose Test Strip) #100 ea 05/09/21 [Rx Confirmed 03/08/23] amlodipine 10 mg tablet 10 mg PO DAILY #90 tabs 03/23/22 [Rx Confirmed 03/08/23] escitalopram oxalate 20 mg tablet (Lexapro) 20 mg PO DAILY 08/31/22 [History Confirmed 03/08/23] pen needle, diabetic 32 gauge x 5/32 (BD Ultra-Fine Radha Pen Needle) #100 ea 11/08/22 [Rx Confirmed 03/08/23] dulaglutide 1.5 mg/0.5 mL subcutaneous pen injector (Trulicity) 1.5 mg (0.5 mL) subcut QWEEK #2 mL 02/19/23 [Rx Confirmed 03/08/23] blood-glucose sensor (FreeStyle Kanu 3 Sensor device) #2 ea 02/20/23 [Rx Confirmed 03/08/23] amoxicillin 875 mg-potassium clavulanate 125 mg tablet 1 tab PO BID 03/08/23 [History Confirmed 03/08/23] cholecalciferol (vitamin D3) 1,250 mcg (50,000 unit) capsule 50,000 unit PO QWEEK 03/08/23 [History] ferrous sulfate 325 mg (65 mg iron) tablet (FeroSul) 325 mg PO BID 03/08/23 [History Confirmed 03/08/23] gabapentin 300 mg capsule 300 mg PO QHS 03/08/23 [History Confirmed 03/08/23] hydrochlorothiazide 12.5 mg tablet 25 mg PO DAILY 03/08/23 [History] insulin regular hum U-500 conc 500 unit/mL(3 mL) subcut pen (Humulin R U-500 (Conc) Insulin Kwikpen) 80 unit subcut TID 03/08/23 [History] losartan 50 mg tablet 50 mg PO BID 03/08/23 [History Confirmed 03/08/23] metformin 500 mg tablet 500 mg PO BID 03/08/23 [History Confirmed 03/08/23] prazosin 1 mg capsule 1 mg PO QHS 03/08/23 [History Confirmed 03/08/23] rosuvastatin 10 mg tablet 20 mg PO DAILY 03/08/23 [History] [facility] Medical History (Updated 03/08/23 @ 15:[address] Jose Kumar MD) Benign essential hypertension, age 0-18 Charcot foot due to diabetes mellitus Chronic ulcer of great toe of right foot with fat layer exposed Hyperlipidemia Hypertension Localized edema Malnutrition Mixed hyperlipidemia Neuropathy Non-pressure chronic ulcer of unspecified part of right lower leg with fat layer exposed Obesity (BMI 30-39.9) Other specified peripheral vascular diseases Polyneuropathy due to type 1 diabetes mellitus Type 1 diabetes mellitus Type 2 diabetes mellitus with diabetic polyneuropathy Type 2 diabetes mellitus with right diabetic foot ulcer Venous insufficiency (chronic) (peripheral) Vitamin D deficiency Weight loss Surgical History (Updated 03/08/23 @ 09:18 by Nakia Cueto) History of eye surgery Family History Father Diabetes Kidney diseaseMother Diabetes Social History (Updated 03/08/23 @ 09:21 by Nakia Cueto) Smoking Status: Never smoker alcohol intake: current alcohol intake frequency: holidays/special occasions only substance use type: does not use HPI HPI HPI: Patient is a 52-year-old male who presents for need to schedule diagnostic colonoscopy secondary to recent rapid weight loss. [facility]. Patient has not had prior colonoscopy. He estimates that he has lost approximately 50 pounds since the beginning of this year descending from a maximum weight of 280 pounds to 229 pounds today. He confirms that his appetite has experienced no change and he shares that he is still eating 2 meals per day. When asked if there is any correlation between his diabetes control, he shares this is unlikely and that his diabetes control has been bouncing up and down . Asked about any other significant changes in his health history he reports that he has experienced a cough for the last 3 months that is nonproductive and dry. He shares that several rounds of antibiotics have done little to improve this cough. He also denies that there has been any blood associated with this cough. He confirms that he is a non-smoker, but has significant secondhand smoke exposure from both of his parents, his grandparents, and close friends. 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 Beyond the above, Mr. Lee confirms that he has experienced night sweats at least 3 times in the last 1 month. He relates that he believes this was connected to an infectious cause. He also shares that he has recently overcome some swollen, tender nodules in his neck. They describe their bowel habits as normal . They have approximately 3-4 per day with some occasional straining. They do suggest that this frequency is an increase over there prior normal frequency of 1 time per day where they suggest they were just a year ago. They have not noticed recent bleeding or dark stools. They do not regularly take fiber supplements. However, they do report a history of iron use which they confirm is related to history of low blood counts. Patient has no family history of colon cancer, inflammatory bowel disease, or diverticulitis. The patient is not prescribed anticoagulants/blood thinners. Relevant prior abdominal surgical history includes: None Patient does not have a significant history of GERD/heartburn. ROS General General: Yes weight change; No appetite, fatigue, colon cancer, breast cancer or weakness Additional Details: Weight loss of nearly 50 pounds this year HEENT HEENT: Yes difficulty swallowing and swollen glands; No eye injury, eye surgery or hoarseness Endo Endocrine: Yes diabetes mellitus; No thyroid disease, thyroid cancer, Hair loss, heat intolerance or cold intolerance Skin Skin: No rash or changing moles Breast Breast: No left breast lump, right breast lump, nipple discharge, breast pain, abnormal mammogram, abnormal US or breast enlargement Musc Musculoskeletal: No back problems, arthritis, rheumatoid arthritis, gout or joint pain Cardio Cardiovascular: No murmur, pacemaker, heart disease, atrial fibrillation, high blood pressure, heart attack, heart stent, palpitations, shortness of breat with exertion or chest pain Psych Psychiatric: Yes depression and anxiety; No hearing voices Resp Respiratory: Yes shortness of breath, No sleep apnea, Yes cough, No COPD, No asthma, No emphysema and No wheezing Gastro Gastrointestinal: No abdominal pain, No nausea or vomiting, No diarrhea, No constipation, No blood in stool, No acid reflux, No hemorrhoids, No ulcers, No gallbladder problem and No black,tarry stools [place] Hematologic: Yes blood thinners, No blood disorders, No bleeding, No anemia and No blood clots Neuro Neurologic: No system reviewed and no additional complaints, except as documented, No as per HPI, No abnormal gait, No abnormal hearing, No abnormal movements, No abnormal speech, No behavioral changes, No burning sensations, No confusion, No convulsions, No disequilibrium, No dizziness, No localized weakness, No frequent falls, No headache(s), No lack of coordination, No loss of vision, No memory loss, No numbness, No other visual disturbances, No radicular pain, No restless legs, No sensory deficit, No syncope, No tingling, No tremor(s), No weakness and No other Exam Const General: cooperative and anxious Orientation: alert, awake and oriented x3 Neck Lymphatic: no lymphadenopathy noted Resp Effort & Inspection: normal respiratory effort Other: Clear to auscultation bilaterally, mild inspiratory wheezes (particularly on the right). No rales or rhonchi Assessment and Plan Assessment and Plan (1) Unexplained weight loss: Status: Acute Comment: This is a 52-year-old male who presents for consideration of colonoscopy given history of recent unintentional weight loss. Patient has experienced weight loss of approximately 50 pounds in the last year. There is no good explanation for this weight loss, however, he does remark of an increase in his bowel movement frequency. Otherwise he denies any specific GI complaints. Additionally, he is reporting a chronic cough with some associated night sweats and lymphadenopathy. Therefore, I find it reasonable to proceed with a diagnostic colonoscopy to assess for possible occult malignancy?especially since patient has never received colon cancer screening and he is 6 years past due. However, I believe the differential should still include alternative causes and would name possible lymphoma versus lung cancer versus other amongst those causes. In an effort to further the workup for patient's refractory cough I am ordering a chest x-ray today. I would like him to either resolve this issue or receive a better explanation for this cough before undergoing our procedure. Plan: ? Plan will be to complete colonoscopy on first mutually agreeable date under local MAC. Pre-procedure prep discussed and paper instructions provided. Patient is also made aware that he will need to have a restaurant delivery driver with him the day of the procedure. ? Chest x-ray as above (2) Cough present for greater than 3 weeks: Status: Acute Comment: Nonproductive cough refractory to antibiotics present for 3 months. Patient with significant secondhand exposure to smoke. I have examined the patient and the H&P has been reviewed. There are no clinical changes since date of exam. Patient suggest that he may have had weight loss of a few more pounds since our last interaction. He otherwise denies any new diagnoses. He confirms that he has remained on a very low fiber diet for about a week. He also confirms that he took additional laxatives to try to make this procedure a success after an aborted procedure due to a poor prep on 04/26/2023. He denies any changes to his noted bowel habits. Will proceed to endoscopy suite for make up diagnostic colonoscopy as discussed in greater detail above.
[2023-06-01 08:17] VITALS: BP 118/78; BP 145/98; PULSE 75; RESP 16; TEMP 36.8; O2SAT 98
[2023-06-01 08:20] VITALS: BP 121/80; BP 145/98; PULSE 73; RESP 16; O2SAT 99
[2023-06-01 08:25] VITALS: BP 124/83; BP 145/98; PULSE 75; RESP 16; O2SAT 98
--- NOTE | 2023-06-01 08:28 | OP.COLON_ITS ---
Patient Name: Zoraida Lee Procedure Date: 06/01/2023 7:27 AM Date of : 1970 Age: 53 Procedure: Colonoscopy Indications: Weight loss Providers: Jose Kumar MD Referring MD: Maria De Jesus Gee [facility] Medicines: See the Anesthesia note for documentation of the administered medications Patient Profile: Refer to note in patient chart for documentation of history and physical. Last Colonoscopy: none. The patient's first colonoscopy is today. Complications: No immediate complications. Estimated blood loss: None. Procedure: Pre-Anesthesia Assessment: - The heart rate, respiratory rate, oxygen saturations, blood pressure, adequacy of pulmonary ventilation, and response to care were monitored throughout the procedure. After I obtained informed consent, the scope was passed under direct vision. Throughout the procedure, the patient's blood pressure, pulse, and oxygen saturations were monitored continuously. The Colonoscope was introduced through the anus and advanced to the ascending colon. The colonoscopy was performed with difficulty due to poor bowel prep with stool present. Successful completion of the procedure was aided by lavage. The patient tolerated the procedure well. Scope In: 7:48:47 AM Scope Out: 8:10:15 AM Total Procedure Duration Time 0 hours 21 minutes 28 seconds Findings: The perianal and digital rectal examinations were normal. A large amount of stool was found in the entire colon, interfering with visualization. Lavage of the area was performed using a large amount, resulting in incomplete clearance with continued poor visualization. Impression: - Stool in the entire examined colon. - No specimens collected. - The procedure was aborted due to the difficulty of the procedure. Recommendation: - Discharge patient to home (via wheelchair). - Resume previous diet today. - Continue present medications. - Repeat colonoscopy in 6 months because the bowel preparation was poor. - Telephone my office for study results in 1 week. Procedure Code(s): --- Professional --- 53329, 53, Colonoscopy, flexible; diagnostic, including collection of specimen(s) by brushing or washing, when performed (separate procedure) Diagnosis Code(s): --- Professional --- R63.4, Abnormal weight loss CPT copyright 2021 [employer]. All rights reserved. The codes documented in this report are preliminary and upon cpc coder review may be revised to meet current compliance requirements. Jose Kumar MD 06/01/2023 8:27:52 AM This report has been signed electronically. Number of Addenda: 0 Note Initiated On: 06/01/2023 7:27 AM
--- NOTE | 2023-06-01 08:28 | OP.CCLET_ITS ---
06/01/2023 Maria De Jesus Gee [facility] Re : Colonoscopy procedure for Zoraida Bond [facility] This procedure was performed on Thursday, June 01, 2023. My impressions and recommendations are as follows: Impressions : - Stool in the entire examined colon. - No specimens collected. - The procedure was aborted due to the difficulty of the procedure. Recommendations : - Discharge patient to home (via wheelchair). - Resume previous diet today. - Continue present medications. - Repeat colonoscopy in 6 months because the bowel preparation was poor. - Telephone my office for study results in 1 week. My findings are described in the full procedure note, which is enclosed. If I can be of further assistance, please feel free to contact me at Doctor phone number(s): , Work: . Sincerely, Jose Kumar MD 06/01/2023 8:27:52 AM This report has been signed electronically.
[2023-06-01 08:32] VITALS: BP 131/99; BP 145/98; PULSE 78; RESP 16; TEMP 36.4; O2SAT 100
[2023-06-01 08:52] VITALS: BP 145/98
--- NOTE | 2023-06-01 08:56 | SUR.PHASEII ---
Patient frustrated about having a poor bowel preparation for the second time. Patient states that they started eating yogurt and applesauce 2 weeks ago in order to prepare. patient states they drank 2 of the liquid dulcolax bottles for this prep and they drank lots of water yesterday. Patient states that they will not be coming back for another colonoscopy. This nurse encouraged patient to talk with Dr. Kumar and discuss their options. Reviewed bowel preparation instructions. Patient to call office next week for follow up per instructions.
== END 2023-06-01 09:10 | disposition home or self-care (01) ==
LOC: EN 06:04 → AC 06:05
PROVIDERS: Visit Provider Surgery
PROC: 0DJD8ZZ Inspection of Lower Intestinal Tract, Via Natural or Artificial Opening Endoscopic (ICD-10-PCS; CPT 45378; principal; 2023-06-01 07:25)
DX: R63.4 Abnormal weight loss (principal); E10.42 Type 1 diabetes mellitus with diabetic polyneuropathy; Z79.4 Long term (current) use of insulin; R19.4 Change in bowel habit; E66.9 Obesity, unspecified; I10 Essential (primary) hypertension; E78.2 Mixed hyperlipidemia; Z68.37 Body mass index [BMI] 37.0-37.9, adult; Z77.22 Contact with and (suspected) exposure to environmental tobacco smoke (acute) (chronic); Z79.82 Long term (current) use of aspirin; Z79.84 Long term (current) use of oral hypoglycemic drugs; Z79.85 Long-term (current) use of injectable non-insulin antidiabetic drugs; Z79.899 Other long term (current) drug therapy
CPT/HCPCS: 45378; 82962; J2405

== ENCOUNTER → 2023-06-02 | Outpatient (CLI) | payer MEDICARE, MEDICAID, SELFPAY ==
--- NOTE | 2023-06-02 07:53 | US_ITS ---
STUDY: ABDOMINAL ULTRASOUND - RIGHT UPPER QUADRANT REASON FOR VISIT: Male, 53 years old hypoglycemia -- focus pancreas and liver please TECHNIQUE: Ultrasound evaluation of the right upper quadrant was performed with real-time and static coleman-scale imaging. TECHNICAL QUALITY: Adequate. COMPARISON: None. FINDINGS: Liver: The liver measures 15.9 cm. There is increased echogenicity consistent with fatty infiltration. The bile ducts are within normal limits. There is hepatic color flow. The direction of portal flow is hepatopetal. There is no demonstrated mass lesion. Gallbladder: Normal distended gallbladder. The gallbladder wall measures 2 mm. There is a negative sonographic Mcdowell''s sign. There is no pericholecystic fluid. There is biliary sludge dependent within the gallbladder. Common Bile Duct (C.B.D.): The common bile duct measures 3 mm. Pancreas: Normal size of the head, body and tail of the pancreas. There is normal echogenicity of the pancreas. There is no demonstrated pancreatic mass or cyst. Right Kidney: Normal size of the right kidney. The right kidney measures 11.1 cm. Normal renal cortex. The right cortex measures 1.0 cm. There is no demonstrated renal mass or cyst. There is no right hydronephrosis. US/Abdomen Limited IMPRESSION: 1. Gallbladder sludge. 2. Fatty infiltration of liver. Electronically Signed: Los Hardy MD at 22:58 EST ,
--- OUTSIDE RECORDS SUMMARY | 2023-06-02 08:05 | XMS RPT_ITS | CCD ---
Demographics Address [address] [place] [address] Preferred Language Unknown Marital Status Single [employer]an Affiliation Unknown Race White Ethnic Group Unknown Author Name Unknown Address [address] [place] [address] Organization [facility] Results Test Name Value Interpretation Reference Range Facil ity Progress note 12-08-2020 Note Date & Type Note Facility 12-08-2020 Note HNO ID: [id number] Author: Mryon French PA-C Service: ? Author Type: Physician Stock Blender Type: Progress Notes Filed: 12/08/2020 6:49 PM Note Text: [facility] Some elements copied from my previous note, which have been updated where appropriate, and all reflect current medical decision making from date of this visit. [facility] UROLOGY PATIENT INFO: Lauren Lee 50 year [...] for follow up BREANN Reinoso MT, PA-C [facility] Progress note 08-17-2020 Note Date & Type Note Facility 08-17-2020 Note HNO ID: [id number] Author: Myron French PA-C Service: ? Author Type: Physician Stock Blender Type: Progress Notes Filed: 08/17/2020 2:42 PM Note Text: [facility] UROLOGY CONSULT PATIENT INFO: Lauren Lee 50 [...] - 1.030 HEMOGLOBIN (more content not included)... [facility] Summary Purpose Family History No Family [...] DATE CREATED AUTHOR AUTHOR'S ORGANIZ ATION 09/10/2019 [facility] Reference Lab DATE CREATED AUTHOR AUTHOR'S ORGANIZ ATION 05/03/2021 [facility] FOR RECORDS PERTAINING TO PATIENTS WHO [...] BE BASED ON THE PRIMARY CLINICAL RECORDS. [facility] [employer] provides no warranty or guarantee of the accuracy or completeness of information in this document.
== END | disposition home or self-care (01) ==
LOC: US 07:52
PROVIDERS: Referring Provider Nurse Practitioner Family; Visit Provider Nurse Practitioner Family
DX: E16.2 Hypoglycemia, unspecified (principal)
CPT/HCPCS: 76705; J7120

== ENCOUNTER → 2023-08-21 | Outpatient (CLI) | payer MEDICARE, MEDICAID, SELFPAY ==
[2023-08-21 13:06] LABS: Absolute Lymphocyte Count 1.52 X10^3/uL (0.83-4.51); Absolute Neutrophil Count 3.1 X10^3/uL (2.0-7.7); Basophil# 0.04 X10^3/uL; Basophil% 0.7 % (0-1); Eosinophil# 0.24 X10^3/uL; Eosinophils% 4.5 % (0-5); Hematocrit 36.7 % (40-54); Hemoglobin 11.9 g/dL (13.0-16.5); Lymphocyte # 1.52 X10^3/ul (0.83-4.51); Lymphocyte % 28.3 % (19-41); Mean Corp Hgb Conc 32.4 g/dL (32-36); Mean Corpuscular Volume 80.3 fL (80-94); Mean Platelet Vol. 10.3 fl (6.2-12.0); Monocyte# 0.47 X10^3/uL; Monocyte% 8.7 % (0-10); NRBC Flagged by Analyzer 0 % (0-5); Neutrophil % 57.6 % (47-70); Platelet Count 195 K/mm3 (150-450); RBC Distribution Width CV 13.6 % (11.6-14.6); RBC Distribution Width SD 39.2 fl (35.1-43.9); Red Blood Count 4.57 M/mm3 (4.6-6.2); White Blood Count 5.4 K/mm3 (4.4-11.0)
[2023-08-21 13:32] LABS: Microalbumin,Random Urine 60.7 mg/L (NO RANGE EST.)
[2023-08-21 13:39] LABS: ALB/GLOB Ratio 0.9 RATIO (0.9-2.4); AST(SGOT) 19 U/L (15-37); Alanine Aminotransfer ALT/SGPT 22 U/L (16-61); Albumin, Serum 3.5 g/dL (3.2-5.0); Alkaline Phosphatase 61 U/L (45-117); Anion Gap 9 (5-15); BUN 20 mg/dL (7-18); BUN/Creat Ratio 15.9 RATIO (10-20); Calcium,Total 8.1 mg/dL (8.5-10.1); Chloride 108 mmol/L (98-107); Creatinine, Serum 1.26 mg/dL (0.70-1.30); EST Glomerular Filtration Rate 64 mL/min (>60); Est Glom Filt Rate - Afr Amer 77 mL/min (>60); Globulin 4.1 g/dL (2.2-4.2); Glucose 151 mg/dL (74-106); Potassium 3.9 mmol/L (3.5-5.1); Protein, Total 7.6 g/dL (6.4-8.2); Sodium Level 141 mmol/L (136-145); Thyroid Stim Hormone (TSH) 0.94 uIU/mL (0.358-3.74)
== END | disposition home or self-care (01) ==
PROVIDERS: PCP Nurse Practitioner Family; Referring Provider Nurse Practitioner Family; Visit Provider Nurse Practitioner Family
DX: I10 Essential (primary) hypertension (principal); E10.40 Type 1 diabetes mellitus with diabetic neuropathy, unspecified
CPT/HCPCS: 36415; 80053; 82043; 84443; 85025

== ENCOUNTER → 2023-11-20 | Outpatient (CLI) | payer MEDICARE, MEDICAID, SELFPAY ==
[2023-11-20 12:47] LABS: Absolute Lymphocyte Count 1.25 X10^3/uL (0.83-4.51); Absolute Neutrophil Count 2.1 X10^3/uL (2.0-7.7); Basophil# 0.04 X10^3/uL; Eosinophil# 0.17 X10^3/uL; Eosinophils% 4.3 % (0-5); Hematocrit 39.8 % (40-54); Hemoglobin 12.7 g/dL (13.0-16.5); Lymphocyte # 1.25 X10^3/ul (0.83-4.51); Lymphocyte % 31.4 % (19-41); Mean Corp Hgb Conc 31.9 g/dL (32-36); Mean Corpuscular Hgb 26.1 pg (27.0-32.0); Mean Corpuscular Volume 81.9 fL (80-94); Mean Platelet Vol. 10.5 fl (6.2-12.0); Monocyte# 0.46 X10^3/uL; Monocyte% 11.6 % (0-10); NRBC Flagged by Analyzer 0 % (0-5); Neutrophil # 2.06 X10^3/uL (2.7-7.7); Neutrophil % 51.7 % (47-70); Platelet Count 183 K/mm3 (150-450); RBC Distribution Width CV 13.9 % (11.6-14.6); RBC Distribution Width SD 40.8 fl (35.1-43.9); Red Blood Count 4.86 M/mm3 (4.6-6.2)
[2023-11-20 16:54] LABS: ALB/GLOB Ratio 0.9 RATIO (0.9-2.4); AST(SGOT) 23 U/L (15-37); Alanine Aminotransfer ALT/SGPT 27 U/L (16-61); Albumin, Serum 3.9 g/dL (3.2-5.0); Alkaline Phosphatase 63 U/L (45-117); Anion Gap 8 (5-15); BUN 19 mg/dL (7-18); BUN/Creat Ratio 14.2 RATIO (10-20); Chloride 109 mmol/L (98-107); Creatinine, Serum 1.34 mg/dL (0.70-1.30); EST Glomerular Filtration Rate 59 mL/min (>60); Est Glom Filt Rate - Afr Amer 72 mL/min (>60); Globulin 4.4 g/dL (2.2-4.2); Glucose 102 mg/dL (74-106); Iron 50 ug/dL (65-175); Iron Binding Capacity,Total 474 ug/dL (250-450); PERCENT IRON SATURATION 10.5 % (15.0-55.0); Potassium 4.4 mmol/L (3.5-5.1); Protein, Total 8.3 g/dL (6.4-8.2); Sodium Level 140 mmol/L (136-145); Thyroid Stim Hormone (TSH) 0.789 uIU/mL (0.358-3.740)
== END | disposition home or self-care (01) ==
LOC: VSLAB 11:19
PROVIDERS: PCP Nurse Practitioner Family; Visit Provider Nurse Practitioner Family
DX: R63.4 Abnormal weight loss (principal); Z12.5 Encounter for screening for malignant neoplasm of prostate; D64.9 Anemia, unspecified
CPT/HCPCS: 36415; 80053; 83540; 83550; 84443; 85025

== ENCOUNTER → 2024-05-29 | Outpatient (CLI) | payer MEDICARE, MEDICAID, SELFPAY ==
[2024-05-29 12:48] LABS: Absolute Lymphocyte Count 1.01 X10^3/uL (0.83-4.51); Absolute Neutrophil Count 2.7 X10^3/uL (2.0-7.7); Basophil# 0.05 X10^3/uL; Basophil% 1.1 % (0-1); Eosinophil# 0.22 X10^3/uL; Hematocrit 40.4 % (40-54); Lymphocyte # 1.01 X10^3/ul (0.83-4.51); Lymphocyte % 22.8 % (19-41); Mean Corp Hgb Conc 32.2 g/dL (32-36); Mean Corpuscular Hgb 26.3 pg (27.0-32.0); Mean Corpuscular Volume 81.6 fL (80-94); Mean Platelet Vol. 10.5 fl (6.2-12.0); Monocyte# 0.41 X10^3/uL; Monocyte% 9.3 % (0-10); NRBC Flagged by Analyzer 0 % (0-5); Neutrophil # 2.73 X10^3/uL (2.7-7.7); Neutrophil % 61.6 % (47-70); Platelet Count 195 K/mm3 (150-450); RBC Distribution Width CV 13.5 % (11.6-14.6); RBC Distribution Width SD 39.5 fl (35.1-43.9); Red Blood Count 4.95 M/mm3 (4.6-6.2); White Blood Count 4.4 K/mm3 (4.4-11.0)
[2024-05-29 13:50] LABS: ALB/GLOB Ratio 1.1 RATIO (0.9-2.4); AST(SGOT) 21 U/L (<=37); Alanine Aminotransfer ALT/SGPT 12 U/L (<=46); Albumin, Serum 4.4 g/dL (3.5-5.0); Alkaline Phosphatase 67 U/L (40-129); Anion Gap 9 (5-15); BUN 19 mg/dL (4-19); BUN/Creat Ratio 15.8 RATIO (10-20); Calcium 9.1 mg/dL (7.6-11.0); Chloride 101 mmol/L (96-108); Creatinine, Serum 1.2 mg/dL (0.8-1.3); EST Glomerular Filtration Rate 74 (>60); Globulin 3.8 g/dL (2.2-4.2); Glucose 113 mg/dL (70-99); Iron 48 ug/dL (65-175); Iron Binding Capacity,Total 355 ug/dL (250-450); Iron Binding Capacity,Unsat 307 ug/dL (228-428); Potassium 4.5 mmol/L (3.3-5.1); Protein, Total 8.2 g/dL (5.9-8.4); Sodium Level 137 mmol/L (133-145); Total Bilirubin 0.48 mg/dL (0.00-1.30)
[2024-05-29 20:35] LABS: Cholesterol 141 mg/dL (<=200); High Density Lipoprotein 38 mg/dL; Low Density Lipoprotein Calc. 87 mg/dL; Triglycerides 80 mg/dL; Very Low Density Lipoprotein 16 mg/dL (5-40); cholesterol:hdl ratio screen 3.71
== END | disposition home or self-care (01) ==
PROVIDERS: PCP Nurse Practitioner Family
DX: E11.40 Type 2 diabetes mellitus with diabetic neuropathy, unspecified (principal); E78.5 Hyperlipidemia, unspecified; E61.1 Iron deficiency
CPT/HCPCS: 36415; 80053; 80061; 83540; 83550; 84443; 85025

== ENCOUNTER → 2024-09-02 | Outpatient (CLI) | payer MEDICARE, MEDICAID, SELFPAY ==
[2024-09-02 12:42] LABS: Hematocrit 34.3 % (40-54); Hemoglobin 10.9 g/dL (13.0-16.5); Mean Corp Hgb Conc 31.8 g/dL (32-36); Mean Corpuscular Hgb 25.8 pg (27.0-32.0); Mean Corpuscular Volume 81.1 fL (80-94); Mean Platelet Vol. 10.4 fl (6.2-12.0); Platelet Count 187 K/mm3 (150-450); RBC Distribution Width CV 13.1 % (11.6-14.6); RBC Distribution Width SD 37.3 fl (35.1-43.9); Red Blood Count 4.23 M/mm3 (4.6-6.2); White Blood Count 5.2 K/mm3 (4.4-11.0)
[2024-09-02 13:43] LABS: ALB/GLOB Ratio 1.2 RATIO (0.9-2.4); AST(SGOT) 24 U/L (<=37); Alanine Aminotransfer ALT/SGPT 16 U/L (<=46); Albumin, Serum 4.3 g/dL (3.5-5.0); Alkaline Phosphatase 67 U/L (40-129); Anion Gap 12 (5-15); BUN 18 mg/dL (4-19); BUN/Creat Ratio 13.1 RATIO (10-20); Calcium,Total 8.7 mg/dL (7.6-11.0); Carbon Dioxide 23.9 mmol/L (21.0-32.0); Chloride 104 mmol/L (98-108); Creatinine, Serum 1.35 mg/dL (0.70-1.20); EST Glomerular Filtration Rate 63 (>60); Globulin 3.6 g/dL (2.2-4.2); Glucose 84 mg/dL (70-99); Potassium 4.2 mmol/L (3.3-5.1); Protein, Total 7.9 g/dL (5.9-8.4); Sodium Level 140 mmol/L (133-145); Total Bilirubin 0.43 mg/dL (0.00-1.30)
== END | disposition home or self-care (01) ==
LOC: VSLAB 09:57
PROVIDERS: PCP Nurse Practitioner Family; Visit Provider Nurse Practitioner Family
DX: E11.40 Type 2 diabetes mellitus with diabetic neuropathy, unspecified (principal)
CPT/HCPCS: 36415; 80053; 82043; 85027

== ENCOUNTER → 2025-03-05 | Outpatient (CLI) | payer MEDICARE, MEDICAID, SELFPAY ==
[2025-03-05 10:23] LABS: Hematocrit 33.9 % (40-54); Hemoglobin 10.5 g/dL (13.0-16.5); Immature Granulocytes Count 0.010 X10^3/uL (0.0-0.0); Mean Corp Hgb Conc 31.0 g/dL (32-36); Mean Corpuscular Volume 72.0 fL (80-94); Mean Platelet Vol. 10.4 fl (6.2-12.0); NRBC Flagged by Analyzer 0 % (0-5); Platelet Count 178 K/mm3 (150-450); RBC Distribution Width CV 15.4 % (11.6-14.6); RBC Distribution Width SD 39.4 fl (35.1-43.9); Red Blood Count 4.71 M/mm3 (4.6-6.2); White Blood Count 4.1 K/mm3 (4.4-11.0)
[2025-03-05 10:49] LABS: AST(SGOT) 23 U/L (<=37); Alanine Aminotransfer ALT/SGPT 24 U/L (<=46); Albumin, Serum 4.2 g/dL (3.5-5.0); Alkaline Phosphatase 89 U/L (40-129); Anion Gap 11 (5-15); BUN 16 mg/dL (4-19); BUN/Creat Ratio 13.5 RATIO (10-20); Calcium,Total 8.8 mg/dL (7.6-11.0); Carbon Dioxide 27.1 mmol/L (21.0-32.0); Chloride 102 mmol/L (98-108); Ferritin 42 ng/mL (37-417); Globulin 3.3 g/dL (2.2-4.2); Glucose 150 mg/dL (70-99); Iron 331 ug/dL (65-175); Iron Binding Capacity,Total 401 ug/dL (250-450); Iron Binding Capacity,Unsat 70 ug/dL (228-428); Potassium 4.4 mmol/L (3.3-5.1)
[2025-03-05 11:27] LABS: Cholesterol 157 mg/dL (<=200); Low Density Lipoprotein Calc. 103 mg/dL; Triglycerides 61 mg/dL; Very Low Density Lipoprotein 12 mg/dL (5-40); cholesterol:hdl ratio screen 3.76
== END | disposition home or self-care (01) ==
LOC: VSLAB 09:04
PROVIDERS: PCP Nurse Practitioner Family
DX: I10 Essential (primary) hypertension (principal); E61.1 Iron deficiency; E78.5 Hyperlipidemia, unspecified
CPT/HCPCS: 36415; 80053; 80061; 82728; 83540; 83550; 85025